=== PATIENT | female | born 1990 | race Caucasian/White ===

== ENCOUNTER 2016-10-15 16:40 | Emergency (ER) | payer OTHER ==
[2016-10-15 17:00] VITALS: BP 100/68
--- NOTE | 2016-10-15 18:13 | UC ---
Throat Pain/Nasal Jesus HPI - HPI Summary HPI Summary: 26 yo female with sore throat x 2 days feverish daughter dxed with strep a week ago - History of Current Complaint Chief Complaint: UCRespiratory Stated Complaint: SORE THROAT, EAR PAIN Time Seen by Provider: 10/15/16 18:06 Hx Obtained From: Patient Hx Last Menstrual Period: 07/01/16, states period started and didnt stop until 10/13/16 Onset/Duration: Gradual Onset, Lasting Days Severity: Moderate Pain Intensity: 4 Pain Scale Used: 0-10 Numeric Cough: None - Allergies/Home Medications Allergies/Adverse Reactions: Allergies Allergy/AdvReac Type Severity Reaction Status Date / Time No Known Allergies Allergy Verified 10/15/16 17:00 Home Medications: Home Medications Etonogestrel [Nexplanon] 68 mg IMPLANT ONCE 10/15/16 [History Confirmed 10/15/16 ] PMH/Surg Hx/FS Hx/Imm Hx Previously Healthy: Yes - Surgical History Surgical History: None - Family History Known Family History: Negative: Cardiac Disease, Hypertension, Diabetes - Social History Alcohol Use: Occasionally Substance Use Type: None Smoking Status (MU): Never Smoked Tobacco Review of Systems Constitutional: Fever Skin: Negative Eyes: Negative ENT: Sore Throat Respiratory: Negative Cardiovascular: Negative Gastrointestinal: Negative Genitourinary: Negative Motor: Negative Neurovascular: Negative Musculoskeletal: Negative Neurological: Negative Psychological: Negative All Other Systems Reviewed And Are Negative: Yes Physical Exam Triage Information Reviewed: Yes Appearance: Well-Appearing, No Pain Distress, Well-Nourished Vital Signs: Initial Vital Signs Temp 98.8 F 10/15/16 16:54 Pulse 85 10/15/16 16:54 Resp 14 10/15/16 16:54 BP 100/68 10/15/16 16:54 Pulse Ox 98 10/15/16 16:54 Vital Signs Reviewed: Yes Eyes: Positive: Conjunctiva Clear ENT: Positive: Hearing grossly normal, Pharyngeal erythema, TMs normal - right unable to vis due to cerumen, Tonsillar swelling. Negative: Trismus, Muffled/ hoarse voice Dental: Positive: Cervical Lymphadenopathy. Negative: Abscess @ Neck: Positive: Supple Respiratory: Positive: Lungs clear, Normal breath sounds, No respiratory distress, No accessory muscle use Cardiovascular: Positive: RRR, No Murmur Throat Pain/Nasal Course/Dx - Course Course Of Treatment: rs (-) - Differential Dx/Diagnosis Provider Diagnoses: pharyngitis. recent household exposer to strep Discharge - Discharge Plan Condition: Stable Disposition: HOME Prescriptions: Amoxicillin (*) [Amoxicillin 875 MG (*)] 875 mg PO BID #20 tab Patient Education Materials: Pharyngitis (ED) Referrals: Pauline Winter MD [Primary Care Provider] - Additional Instructions: recheck in 3-4 days if not better
== END 2016-10-15 18:17 | disposition home or self-care (01) ==
LOC: UCCORT 16:40
DX: J02.9 Acute pharyngitis, unspecified (principal); H92.09 Otalgia, unspecified ear
CPT/HCPCS: 87651; 99212; G0463

== ENCOUNTER 2018-01-01 14:06 | Emergency (ER) | payer OTHER ==
[2018-01-01 15:43] VITALS: BP 121/73
--- NOTE | 2018-01-01 16:14 | UC ---
Lower Extremity/Ankle HPI - HPI Summary HPI Summary: Bilateral great toenail pain after wearing new cowboy boots for a wedding. Hurt her back jumping over a fence and only noticed the toenail pain the last 4 days. - History of Current Complaint Chief Complaint: UCLowerExtremity Stated Complaint: BILATERAL GREAT TOE PAIN Time Seen by Provider: 01/01/18 15:55 Hx Obtained From: Patient Hx Last Menstrual Period: 02/28/17 ?: No Onset/Duration: Sudden Onset, Lasting Days - 4, Still Present Severity Initially: Mild Severity Currently: Moderate Pain Intensity: 3 Aggravating Factor(s): Standing, Ambulation Alleviating Factor(s): Rest, Elevation Able to Bear Weight: Yes - Allergies/Home Medications Allergies/Adverse Reactions: Allergies Allergy/AdvReac Type Severity Reaction Status Date / Time No Known Allergies Allergy Verified 01/01/18 15:43 Home Medications: Home Medications Ibuprofen TAB* [Motrin TAB* 600 MG] 600 mg PO Q8H PRN 01/01/18 [History Confirmed 01/01/18] PMH/Surg Hx/FS Hx/Imm Hx Previously Healthy: Yes - Surgical History Surgical History: Yes Surgery Procedure, Year, and Place: tubal ligation - Family History Known Family History: Negative: Cardiac Disease, Hypertension, Diabetes - Social History Occupation: Employed Full-time Lives: With Family Alcohol Use: Rare Substance Use Type: None Smoking Status (MU): Never Smoked Tobacco Review of Systems Skin: Bruising Musculoskeletal: Arthralgia - low back pain Is Patient Immunocompromised?: No All Other Systems Reviewed And Are Negative: Yes Physical Exam Triage Information Reviewed: Yes Appearance: Well-Appearing, Well-Nourished, Pain Distress - with palpation of toenails. Vital Signs: Initial Vital Signs Temp 98.0 F 01/01/18 15:38 Pulse 97 01/01/18 15:38 Resp 16 01/01/18 15:38 BP 121/73 01/01/18 15:38 Pulse Ox 100 01/01/18 15:38 Vital Signs Reviewed: Yes Eyes: Positive: Conjunctiva Clear Neck exam: Normal Respiratory Exam: Normal Cardiovascular Exam: Normal Musculoskeletal Exam: Normal Neurological Exam: Normal Psychological Exam: Normal Skin: Positive: Other - swellilng under both great toe nails Procedures - Procedure Summary Procedure Summary: Bilateral great toe nail sub ungal hematoma drainage achieved with accu-temp electric cautery pen. Lower Extremity Course/Dx - Differential Dx/Diagnosis Differential Diagnosis/HQI/PQRI: Contusion, Infection, Subungual Hematoma Provider Diagnoses: Bilateral subungal hematoma Discharge - Sign-Out/Discharge Documenting (check all that apply): Patient Departure All imaging exams completed and their final reports reviewed: No Studies - Discharge Plan Condition: Stable Disposition: HOME Patient Education Materials: Subungual Hematoma (ED) Referrals: Adrianne Martin NP [Primary Care Provider] - - Billing Disposition and Condition Condition: STABLE Disposition: Home
== END 2018-01-01 16:34 | disposition home or self-care (01) ==
LOC: UCCORT 14:06
DX: S90.211A Contusion of right great toe with damage to nail, initial encounter (principal); S90.212A Contusion of left great toe with damage to nail, initial encounter; X58.XXXA Exposure to other specified factors, initial encounter; Y93.89 Activity, other specified; Y92.9 Unspecified place or not applicable
CPT/HCPCS: 10140; 99211; G0463

== ENCOUNTER 2018-03-06 13:02 | Emergency (ER) | payer OTHER ==
[2018-03-06 14:00] VITALS: BP 126/68
--- NOTE | 2018-03-06 14:32 | UC ---
Throat Pain/Nasal Jesus HPI - HPI Summary HPI Summary: Pt presents with c/o ST and fatigue X 4 weeks. - History of Current Complaint Chief Complaint: UCGeneralIllness Stated Complaint: ST/[place]EN [place]ANDS Time Seen by Provider: 03/06/18 13:55 Hx Obtained From: Patient Hx Last Menstrual Period: unknown, ablation ?: No Onset/Duration: Gradual Onset, Lasting Weeks, Still Present Severity: Mild Pain Intensity: 4 Cough: None Associated Signs & Symptoms: Positive: Dysphagia - Epiglottits Risk Factors Epiglottis Risk Factors: Negative - Allergies/Home Medications Allergies/Adverse Reactions: Allergies Allergy/AdvReac Type Severity Reaction Status Date / Time No Known Allergies Allergy Verified 03/06/18 13:57 Home Medications: Home Medications NK [No Home Medications Reported] 03/06/18 [History Confirmed 03/06/18] PMH/Surg Hx/FS Hx/Imm Hx Previously Healthy: Yes - Surgical History Surgical History: Yes Surgery Procedure, Year, and Place: tubal ligation. uterine ablation - Family History Known Family History: Negative: Cardiac Disease, Hypertension, Diabetes - Social History Occupation: Employed Full-time Lives: With Family Alcohol Use: Rare Substance Use Type: None Smoking Status (MU): Never Smoked Tobacco Have You Smoked in the Last Year: No Review of Systems All Other Systems Reviewed And Are Negative: Yes Constitutional: Positive: Fever - subjective, Fatigue Skin: Positive: Negative Eyes: Positive: Negative ENT: Positive: Sore Throat Respiratory: Positive: Negative Cardiovascular: Positive: Negative Gastrointestinal: Positive: Negative Genitourinary: Positive: Negative Motor: Positive: Negative Neurovascular: Positive: Negative Musculoskeletal: Positive: Negative Neurological: Positive: Negative Psychological: Positive: Negative Is Patient Immunocompromised?: No Physical Exam Triage Information Reviewed: Yes Appearance: Well-Appearing Vital Signs: Initial Vital Signs Temp 98 F 03/06/18 13:55 Pulse 65 03/06/18 13:55 Resp 14 03/06/18 13:55 BP 126/68 03/06/18 13:55 Pulse Ox 100 03/06/18 13:55 Vital Signs Reviewed: Yes Eye Exam: Normal ENT Exam: Normal ENT: Positive: Normal ENT inspection Dental Exam: Normal Neck exam: Normal Respiratory Exam: Normal Cardiovascular Exam: Normal Abdomen Description: Positive: Other: - epigastirc discomfort with PE. Musculoskeletal Exam: Normal Neurological Exam: Normal Psychological Exam: Normal Skin Exam: Normal Throat Pain/Nasal Course/Dx - Differential Dx/Diagnosis Differential Diagnosis/HQI/PQRI: Mononucleosis, Pharyngitis, Tonsillitis Provider Diagnoses: sore throat. viral syndrome Discharge - Sign-Out/Discharge Documenting (check all that apply): Patient Departure All imaging exams completed and their final reports reviewed: No Studies - Discharge Plan Condition: Stable Disposition: HOME Patient Education Materials: Pharyngitis (ED), Fatigue (ED) Referrals: Adrianne Martni NP [Primary Care Provider] - As Soon As Possible - Billing Disposition and Condition Condition: STABLE Disposition: Home - Attestation Statements Provider Attestation: Per institutional requirements, I have reviewed the chart, however, I was not consulted specifically or made aware of this patient by the midlevel provider. I did not personally evaluate, interact with , or disposition this patient.
[2018-03-07 11:12] LABS: ABS Basophils 0 10^3/ul (0-0.2); ABS Eosinophils 0.2 10^3/ul (0-0.6); ABS Lymphocytes 1.8 10^3/ul (1.0-4.8); ABS Monocytes 0.5 10^3/ul (0-0.8); ABS Neutrophils 6.1 10^3/ul (1.5-7.7); ABS Nucleated RBC 0 10^3/ul; Eosinophil % 2.3 % (0-6); Hematocrit 43 % (35-47); Hemoglobin 14.5 g/dl (12.0-16.0); Mean Corpuscular HGB Conc 34 g/dl (31-36); Mean Corpuscular Hemoglobin 31 pg (27-31); Mean Corpuscular Volume 92 fL (80-97); Mean Platelet Volume 9.2 fL (7.4-10.4); Nucleated Red Blood Cells % 0.3; Platelet Count 280 10^3/ul (150-450); Red Blood Count 4.71 10^6/ul (4.00-5.40); Red Cell Distribution Width 13 % (10.5-15); White Blood Count 8.7 10^3/ul (3.5-10.8)
== END 2018-03-06 14:45 | disposition home or self-care (01) ==
LOC: UCCORT 13:02
DX: J02.9 Acute pharyngitis, unspecified (principal); B34.9 Viral infection, unspecified
CPT/HCPCS: 36415; 85025; 86308; 99211; G0463

== ENCOUNTER 2018-04-20 12:16 | Emergency (ER) | payer OTHER ==
[2018-04-20 14:15] VITALS: BP 116/69
--- NOTE | 2018-04-20 14:43 | UC ---
Throat Pain/Nasal Jesus HPI - HPI Summary HPI Summary: 27-year-old female presents with 2 week history of nasal congestion, nasal drainage, sinus pressure, and mild sore throat. States over past 2-3 days the nasal drainage has become more thick and turned a green color. This morning she woke up with her left eye crusted shut and erythema. Denies fever, chills, ear pain, cough, shortness of breath, chest pain, abdominal pain, nausea, vomiting, or diarrhea. - History of Current Complaint Chief Complaint: UCRespiratory Stated Complaint: SINUS COMPLAINT Time Seen by Provider: 04/20/18 14:17 Hx Obtained From: Patient Hx Last Menstrual Period: unknown, ablation Pain Intensity: 0 - Allergies/Home Medications Allergies/Adverse Reactions: Allergies Allergy/AdvReac Type Severity Reaction Status Date / Time No Known Allergies Allergy Verified 04/20/18 14:10 Home Medications: Home Medications Dm/Acetaminophen/Doxylamine [Nighttime Cold-Flu Liquid] 1 dose PO ONCE 04/20/18 [History Confirmed 04/20/18] PMH/Surg Hx/FS Hx/Imm Hx Previously Healthy: Yes - Denies significant PMH. - Surgical History Surgical History: Yes Surgery Procedure, Year, and Place: tubal ligation. uterine ablation - Family History Known Family History: Positive: Non-Contributory - Social History Occupation: Employed Full-time Lives: Alone Alcohol Use: Occasionally Substance Use Type: None Smoking Status (MU): Never Smoked Tobacco Have You Smoked in the Last Year: No Review of Systems All Other Systems Reviewed And Are Negative: Yes Constitutional: Negative: Fever, Chills Eyes: Positive: Drainage, Eye Redness ENT: Positive: Sore Throat, Nasal Discharge, Sinus Congestion, Sinus Pain/ Tenderness. Negative: Ear Ache Respiratory: Negative: Shortness Of Breath, Cough Cardiovascular: Negative: Palpitations, Chest Pain Gastrointestinal: Negative: Abdominal Pain, Vomiting, Diarrhea, Nausea Is Patient Immunocompromised?: No Physical Exam - Summary Physical Exam Summary: GENERAL APPEARANCE: Well developed, well nourished, alert and cooperative, and appears to be in no acute distress. EYES: Left eye with conjunctival erythema. No drainage noted. Vision is grossly intact. EARS: External auditory canals and tympanic membranes clear, hearing grossly intact. NOSE: Mild-moderate nasal congestion with mucosal erythema and edema. THROAT: Mild pharyngeal erythema with cobblestoning. No tonsilar inflammation, swelling, exudate, or lesions. Oral cavity normal. Teeth and gingiva in good general condition. NECK: Neck supple, non-tender without lymphadenopathy. CARDIAC: Normal S1 and S2. No S3, S4 or murmurs. Rhythm is regular. There is no peripheral edema, cyanosis or pallor. Extremities are warm and well perfused. Capillary refill is less than 2 seconds. LUNGS: Clear to auscultation and percussion without rales, rhonchi, wheezing or diminished breath sounds. ABDOMEN: Positive bowel sounds. Soft, nondistended, nontender. No guarding or rebound. No masses or hepatosplenomegally. SKIN: Skin normal color, texture and turgor with no lesions or eruptions. Triage Information Reviewed: Yes Vital Signs: Initial Vital Signs Temp 97.9 F 04/20/18 14:11 Pulse 78 04/20/18 14:11 Resp 16 04/20/18 14:11 BP 116/69 04/20/18 14:11 Pulse Ox 99 04/20/18 14:11 Vital Signs Reviewed: Yes Throat Pain/Nasal Course/Dx - Course Course Of Treatment: 27-year-old female presents with 2 week history of nasal congestion, nasal drainage, sinus pressure, and mild sore throat. States over past 2-3 days the nasal drainage has become more thick and turned a green color. This morning she woke up with her left eye crusted shut and erythema. Denies fever, chills, ear pain, cough, shortness of breath, chest pain, abdominal pain, nausea, vomiting, or diarrhea. Afebrile. Vital signs stable. Exam revealed maxillary sinus tenderness, nasal congestion, mucosal erythema and edema, left conjunctival erythema without discharge, mild pharyngeal erythema with cobblestoning, no tonsillar swelling or exudate. Considering duration of her symptoms and the worsening of symptoms will treat for an acute bacterial sinusitis with Augmentin twice a day 10 days as well as symptomatic treatment. She is to follow-up with her primary care provider in 5 days if symptoms persist. Warning symptoms were reviewed. Verbalizes understanding and agrees with plan of care. - Differential Dx/Diagnosis Differential Diagnosis/HQI/PQRI: Influenza, Otitis Media, Pharyngitis, Sinusitis , URI Provider Diagnosis: Acute maxillary sinusitis, Conjunctivitis Discharge - Sign-Out/Discharge Documenting (check all that apply): Patient Departure All imaging exams completed and their final reports reviewed: No Studies - Discharge Plan Condition: Stable Disposition: HOME Prescriptions: Amoxicillin/Clavulanate TAB* [Augmentin TAB 875*] 875 mg PO BID #20 tab Fluticasone NASAL SPRAY 50MCG* [Flonase NASAL SPRAY 50MCG*] 2 spray BOTH NARES DAILY #1 btl Patient Education Materials: Sinusitis (ED) Referrals: Adrianne Martin NP [Primary Care Provider] - 5 Days (If no improvement.) Additional Instructions: Your history and exam are consistent with a sinus infection and conjunctivitis. Considering the duration of your symptoms we will treat you with an antibiotic for the infection. Start Augmentin 1 tab twice a day for 10 days. This will also treat the eye infection. Drink plenty of fluids to avoid dehydration especially if you are running any fever. Use a saline rinse kit such as Neti Pot or NeilMed at least twice a day to help thin secretions and promote drainage of the sinuses. Use fluticasone (Flonase) nasal spray 2 sprays each nostril once daily. Use an over the counter decongestant such as Sudafed according to directions to help with congestion. Take over the counter acetaminophen (Tylenol) or ibuprofen (Advil, Motrin) according to directions as needed for pain or fever. Follow up with your primary care provider in 7 days if symptoms persist. Seek immediate medical attention in the emergency room if you have fever greater than 100.5 F despite taking acetaminophen or ibuprofen, have chest pain , difficulty breathing, are unable to swallow, or have any worsening of symptoms. - Billing Disposition and Condition Condition: STABLE Disposition: Home - Attestation Statements Provider Attestation: Per institutional requirements, I have reviewed the chart, however, I was not consulted specifically or made aware of this patient by the midlevel provider. I did not personally evaluate, interact with , or disposition this patient.
== END 2018-04-20 14:56 | disposition home or self-care (01) ==
LOC: UCCORT 12:16
DX: J01.00 Acute maxillary sinusitis, unspecified (principal); H10.9 Unspecified conjunctivitis
CPT/HCPCS: 99212; G0463

== ENCOUNTER 2018-08-13 13:57 | Emergency (ER) | payer OTHER ==
--- OUTSIDE RECORDS SUMMARY | 2018-08-13 14:40 | XMS REPORT | Continuity of Care Document ---
:1990 External Reference #:[id number] Author Name Marycruz Kemp MD Address [address] [place] [address] Care Team Providers Name Role Phone Jocelyn Martin, CAMILA Care Team Information Change Room Attendant Unavailable Jocelyn Martin, CAMILA Primary Care Physician Unavailable Payers Date Identification Numbers Payment Provider Subscriber Effective: 2010 Policy Number: [id number] [employer] Diamond PayID: [id number] [address] [place] [address] Advance Directives Description No Information Available Problems Date Description Provider Status Onset: 03/16/2011 Chondromalacia of patella Nakul Puckett MD, FACS Active Family History Date Family Member(s) Observation Comments Father Bipolar Disorder Father Manic Depression Father Stroke Father Hypertension Father Drug Addiction including ETOH and MJ Mother No Current Problems First Sister Thyroid Disease Paternal Grandfather due to Stomach Cancer () Paternal Grandmother Bipolar Disorder Paternal Grandmother due to Cancer () Maternal Grandfather Chronic Obstructive Pulmonary + smoker Disease (COPD) Maternal Grandfather Glaucoma Maternal Grandfather Obesity Maternal Grandfather Benign Essential Hypertension Maternal Grandmother Hypertension Social History Type Date Description Comments Sex Unknown Lives With Daughters Diet Patient follows no dietary restrictions 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5mg 18tab take 1/2 to F41.1 Clune, 19 s 1 tablet by Jenniferl mouth prn eigh, COMPUTER AIDED DESIGN OPERATOR for anxiety and panic attacks mdd#2 Reference #: [id number] Escitalopram 05/23/19 Active Tablets 20mg 45tab 1 and 1/2 Clune, Oxalate 19 s tabs PO Q hs Jenniferl for anxiety eigh, COMPUTER AIDED DESIGN OPERATOR Buspirone HCL 05/31/19 Hx Tablets 5mg 120ta take 1 -2 F41.1 Clune, 19 - bs tablet by Aida 06/21/19 mouth three eigh, COMPUTER AIDED DESIGN OPERATOR 19 times a day No Active 05/17/19 Hx Unknown Medications - 05/23/19 19 No Active 05/03/19 Hx Unknown Medications - 05/03/19 19 Chloraseptic 05/03/19 Hx Lozenges 45uni 1 lozenge by Jose Enrique Dumont Total Sore 19 - ts mouth every MD Mc Throat + Cough 05/17/19 2 hours as 19 needed Tessalon 05/03/19 Hx Capsules 100mg 60cap 1 tab by Anna Marinelli 19 - s mouth three MD Mc 05/17/19 times a day 19 as needed Metronidazole 10/01/19 Hx Tablets 500mg 14tab one by mouth N92.6 Clune, 17 - s twice a day Jenniferl 10/08/19 x 7 days eigh, COMPUTER AIDED DESIGN OPERATOR 17 Sulfacetamide 04/15/20 Hx Solution 10% 15ml 1-2 drops H10.89 Clune, Sodium 16 - each eye 3-5 Jenniferl 10/01/19 times a day britni, COMPUTER AIDED DESIGN OPERATOR 17 for 5 days Prednisone 01/21/20 Hx Tablets 20mg 2tabs Take 2 S70.361A Bonifacio 16 - tablet by Kesha 01/22/20 mouth one YISEL Owens 16 time for inflammation No Active 08/31/19 Hx Unknown Medications 15 - 08/31/19 15 Naproxen 08/31/19 Hx Tablets 500mg 60tab take one 727.05 Clune, 15 - s tablet by Jenniferl 01/21/20 mouth twice eigh, COMPUTER AIDED DESIGN OPERATOR 16 a day . take with food Thumb 08/31/19 Hx Misc use as 727.05 Clune, Splint/Right 15 - needed for Aida Small 01/21/20 RT thumb eigh, COMPUTER AIDED DESIGN OPERATOR 16 tenosynoviti s 8 Hour Pain 05/21/19 Hx Tablets 650mg 1 by mouth Moy Relief 15 - ER every day as Pauline 08/31/19 needed , 15 Azithromycin 05/21/19 Hx Tablets 250mg 10tab 2 tabs by Moy, 15 - s mouth every Pauline 08/31/19 day , 15 No Active 01/27/20 Hx Law[place], Medications 11 - Nakul Cook, 05/21/19 , FACS 15 Nexplanon Hx Implant 68mg Unknown 00 - Unknown Immunizations CPT Code Status Date Vaccine Lot # [id number] Given 05/17/2018 Td Preservative Free For Use In Individuals 7 Yrs [id number] Or Older 96903 Given 08/30/2014 Varicella (Chicken Pox) Vaccine [id number] 51356 Given 04/10/2013 flu vaccination 93637 Given 04/15/2012 flu vaccination 43507 Given 06/17/2011 flu vaccination 17378 Given 01/02/2009 Meningococcal Conjugate Vaccine Serogroups For Intramuscular Use 34817 Given 01/02/2009 Tdap injection 96536 Given 12/26/2008 flu vaccination 35588 Given 12/26/2008 Gardasil 17458 Given 03/19/2008 Gardasil 95297 Given 01/18/2008 Tdap injection 05055 Given 01/18/2008 Gardasil 65448 Given 11/21/2002 Hepatitis B Vaccine Pediatric/Adolescent 53835 Given 11/21/2002 Varicella (Chicken Pox) Vaccine 76467 Given 08/12/2001 Hepatitis B Vaccine Pediatric/Adolescent 98357 Given 12/12/1996 MMR Vaccine, Live, For Subcutaneous Use 20849 Given 12/12/1993 Poliovirus Vaccine Subcutaneous Or Intramuscular 06947 Given 12/12/1993 DTaP Vaccine Younger Than 7 02526 Given 04/15/1993 Hepatitis B Vaccine Pediatric/Adolescent 09862 Given 04/15/1993 Poliovirus Vaccine Subcutaneous Or Intramuscular 11186 Given 04/15/1993 DTaP Vaccine Younger Than 7 29088 Given 09/17/1992 MMR Vaccine, Live, For Subcutaneous Use 79871 Given 1991 DTaP Vaccine Younger Than 7 10360 Given 1991 Hib PRP-T Conjugate 4 Dose Schedule 75278 Given 1991 Poliovirus Vaccine Subcutaneous Or Intramuscular 24581 Given 1991 DTaP Vaccine Younger Than 7 93341 Given 1991 Hib PRP-T Conjugate 4 Dose Schedule 69857 Given 1991 Poliovirus Vaccine Subcutaneous Or Intramuscular 44600 Given 1991 DTaP Vaccine Younger Than 7 10709 Given 1991 Hib PRP-T Conjugate 4 Dose Schedule Vital Signs Date Vital Result Comment 07/21/2018 8:49am BP Systolic 104 mmHg BP Diastolic 58 mmHg Heart Rate 82 /min Respiratory Rate 15 /min Height 58 inches 4'10" Weight 132.00 lb BMI (Body Mass Index) 27.6 kg/m2 BSA (Body Surface Area) 1.53 m2 [place] body weight in kilograms 45 kg O2 % BldC Oximetry 98 % 07/11/2018 4:37pm BP Systolic Sitting Left Arm 118 mmHg BP Diastolic Sitting Left Arm 68 mmHg Body Temperature 98.3 F Heart Rate 97 /min Weight 131.00 lb O2 % BldC Oximetry 97 % 06/21/2018 8:27am BP Systolic 112 mmHg BP Diastolic 74 mmHg Heart Rate 75 /min Respiratory Rate 18 /min Height 59 inches 4'11" Weight 126.50 lb BMI (Body Mass Index) 25.5 kg/m2 BSA (Body Surface Area) 1.52 m2 [place] body weight in kilograms 45 kg O2 % BldC Oximetry 99 % Ra 05/31/2018 8:36am BP Systolic 120 mmHg BP Diastolic 70 mmHg Body Temperature 98.7 F Heart Rate 84 /min Respiratory Rate 16 /min Height 59 inches 4'11" Weight 126.00 lb BMI (Body Mass Index) 25.4 kg/m2 BSA (Body Surface Area) 1.52 m2 [place] body weight in kilograms 45 kg O2 % BldC Oximetry 98 % 05/17/2018 9:43am BP Systolic 110 mmHg BP Diastolic 72 mmHg Body Temperature 97.9 F Heart Rate 71 /min Respiratory Rate 20 /min Height 59 inches 4'11" Weight 126.12 lb BMI (Body Mass Index) 25.5 kg/m2 BSA (Body Surface Area) 1.52 m2 [place] body weight in kilograms 45 kg O2 % BldC Oximetry 99 % Ra Pain Level 0 05/03/2018 10:33am BP Systolic Sitting Left Arm 110 mmHg BP Diastolic Sitting Left Arm 70 mmHg Body Temperature 98.6 F Heart Rate 82 /min Respiratory Rate 16 /min Height 59 inches 4'11" Weight 130.00 lb BMI (Body Mass Index) 26.3 kg/m2 BSA (Body Surface Area) 1.54 m2 [place] body weight in kilograms 45 kg O2 % BldC Oximetry 99 % 09/30/2016 8:51am BP Systolic Sitting Left Arm 110 mmHg BP Diastolic Sitting Left Arm 68 mmHg Heart Rate 72 /min Respiratory Rate 18 /min Height 59 inches 4'11" Weight 125.38 lb BMI (Body Mass Index) 25.3 kg/m2 BSA (Body Surface Area) 1.51 m2 [place] body weight in kilograms 45 kg 04/15/2016 11:44am BP Systolic Sitting Left Arm 118 mmHg BP Diastolic Sitting Left Arm 72 mmHg Body Temperature 97.7 F Height 59 inches 4'11" Weight 118.00 lb BMI (Body Mass Index) 23.8 kg/m2 BSA (Body Surface Area) 1.47 m2 [place] body weight in kilograms 45 kg 01/21/2016 2:26pm BP Systolic Sitting Left Arm 118 mmHg BP Diastolic Sitting Left Arm 60 mmHg Body Temperature 99.3 F Heart Rate 64 /min Respiratory Rate 16 /min Height 59 inches 4'11" Weight 117.50 lb BMI (Body Mass Index) 23.7 kg/m2 BSA (Body Surface Area) 1.47 m2 [place] body weight in kilograms 45 kg 08/30/2014 9:16am BP Systolic Sitting Left Arm 112 mmHg BP Diastolic Sitting Left Arm 70 mmHg Height 60.5 inches 5'0.50" Weight 121.00 lb BMI (Body Mass Index) 23.2 kg/m2 BSA (Body Surface Area) 1.52 m2 05/21/2014 1:42pm BP Systolic 104 mmHg BP Diastolic 60 mmHg Body Temperature 99.2 F Height 60.5 inches 5'0.50" Weight 128.00 lb 06/05/2013 2:13pm BP Systolic 102 mmHg BP Diastolic 62 mmHg Body Temperature 98.3 F Height 60.5 inches 5'0.50" Weight 151.00 lb 12/20/2012 5:05pm BP Systolic 126 mmHg BP Diastolic 76 mmHg Height 60.5 inches 5'0.50" Weight 129.00 lb 12/01/2012 4:52pm BP Systolic 108 mmHg BP Diastolic 76 mmHg Heart Rate 72 /min Height 60.5 inches 5'0.50" Weight 129.00 lb 03/25/2012 9:16am BP Systolic 118 mmHg BP Diastolic 76 mmHg Height 61 inches 5'1" Weight 130.00 lb 03/04/2012 9:30am BP Systolic 102 mmHg BP Diastolic 68 mmHg Height 61 inches 5'1" Weight 128.00 lb 02/01/2012 1:16pm BP Systolic 110 mmHg BP Diastolic 66 mmHg Body Temperature 98.6 F Height 61 inches 5'1" Weight 129.00 lb 12/24/2011 2:18pm BP Systolic 118 mmHg BP Diastolic 70 mmHg Body Temperature 98.5 F Height 61 inches 5'1" Weight 128.00 lb 07/09/2011 10:49am BP Systolic 108 mmHg BP Diastolic 70 mmHg Body Temperature 98.5 F Height 61 inches 5'1" Weight 122.00 lb 05/14/2011 1:35pm BP Systolic 112 mmHg BP Diastolic 76 mmHg Height 59.5 inches 4'11.50" Weight 127.00 lb 05/14/2011 1:38pm Body Temperature 98.0 F 04/13/2011 3:44pm BP Systolic 108 mmHg BP Diastolic 80 mmHg Body Temperature 97.6 F Heart Rate 76 /min Height 59.5 inches 4'11.50" Weight 130.00 lb 03/02/2011 1:37pm BP Systolic 104 mmHg BP Diastolic 62 mmHg Body Temperature 97.8 F Height 59.5 inches 4'11.50" Weight 126.00 lb 02/04/2011 10:21am BP Systolic 98 mmHg BP Diastolic 60 mmHg Body Temperature 98.9 F Heart Rate 72 /min Respiratory Rate 18 /min Height 59.5 inches 4'11.50" Weight 181.00 lb 01/26/2011 10:53am Height 60 inches 5'0" Weight 128.00 lb BMI (Body Mass Index) 25.0 kg/m2 12/16/2010 3:11pm BP Systolic 108 mmHg BP Diastolic 80 mmHg Body Temperature 97.9 F Height 59.5 inches 4'11.50" Weight 132.00 lb Results Test Date Facility Test Result H/L Range Note Urine Dipstick 07/11/2018 [facility] Ua Color Yellow Yellow Ua Clarity clear Clear Ua Leuko negative Negative Ua Nitrite negative Negative Ua Urobilinogen 0.2 0.2 - 1.0 E.U./dL Ua Protein negative Negative Ua PH 6.5 6.5-7.5 Ua Blood negative Negative Ua Specific [place] 1.015 1.010-1.030 Ua Ketones negative Negative Ua Bilirubin negative Negative Ua Glucose negative Negative CBC W/Automated Diff 07/11/2018 [facility] White Blood 8.3 K/uL N 3.1-10.[address] [place] [address] [phone] Red Blood Count 4.40 M/uL N 3.90-5.40 Hemoglobin 13.4 gm/dL N 11.6-15.8 Hematocrit 40.4 % N 36.0-46.1 Mean Cell Volume 91.8 fl N 80.9-99.0 Mean Corpuscular HGB 30.5 pg N 25.9-32.7 Mean Corpuscular HGB Conc 33.2 g/dL N 30.8-34.3 Platelet Count 261 K/uL N 155-360 Red Cell Distri Width SD 41.5 fl N 36-47 Red Cell Distri Width %CV 12.8 % N 11.7-14.4 Mean Platelet Volume 9.8 fL N 8.9-12.4 Neut% 53.4 % N 40.4-72.8 Lymph % 36.2 % N 20.0-42.0 [place] % 7.2 % N 4.3-13.2 Eo% 2.8 % N 0.0-6.6 Bas% 0.4 % N 0.0-1.1 Neut# 4.41 K/uL N 1.8-7.0 Lymph # 2.99 K/uL N 1.0-4.0 [place] # 0.59 K/uL N 0.3-0.9 Eos # 0.23 K/uL N 0.0-0.5 Baso # 0.03 K/uL N 0.0-0.1 Comprehensive Metabolic 07/11/2018 [facility] Glucose 81 mg/dL N 74-[address] [place] [address] [phone] BUN 13 mg/dL N 7-18 Creatinine 0.9 mg/dL N 0.6-1.3 Glom Filtration Rate, Estimate >60 mL/min >60 If >60 mL/min >60 2 BUN/Creat 14.4 ratio Sodium 141 mmol/L N 136-145 Potassium 3.8 mmol/L N 3.5-5.1 Chloride 106 mmol/L N 98-107 Carbon Dioxide 28 mmol/L N 21-32 Anion Gap 7 mEq/L Low 8-16 Calcium 8.8 mg/dL N 8.5-10.1 Total Protein 7.0 g/dL N 6.4-8.2 Albumin 4.1 g/dL N 3.4-5.0 Globulin 2.9 g/dL N 1.9-4.3 Alb/Glob 1.4 ratio Bilirubin,Total 0.6 mg/dL N 0.2-1.0 Sgot/Ast 20 U/L N 15-37 SGPT/Alt 27 U/L N 12-78 Alkaline Phosphatase 49 U/L N 45-117 Ua RFX Micro & Culture 07/11/2018 [facility] Urine Color YELLOW Yellow II [address] [place] [address] [phone] Urine Clarity CLEAR Clear Urine Glucose - Dipstick NEGATIVE mg/dL Negative Urine Bilirubin - Dipstick NEGATIVE Negative Urine Ketone NEGATIVE mg/dL Negative Urine Specific [place] 1.020 N 1.010-1.030 Urine Blood NEGATIVE Negative Urine PH 6.0 Low 6.5-7.5 Urine Protein - Dipstick NEGATIVE mg/dL Negative Urine Urobilinogen - Dipstick 0.2 E.U./dL N 0.2-1.0 Urine Nitrite - Dipstick NEGATIVE Negative Urine Leuk Esterase NEGATIVE Negative Source: URINE, CLEAN CAT <SEE NOTE> 3 Laboratory test finding 07/11/2018 [facility] Lipase 142 U/L N 56-289 [address] [place] [address] [phone] HCG,Serum (Qualitative) NEGATIVE (Negative) Urine Dipstick 05/17/2018 [facility] Ua Color - Yellow Ua Clarity cloudy Clear Ua Leuko - Negative Ua Nitrite - Negative Ua Urobilinogen 0.2 0.2 - 1.0 E.U./dL Ua Protein - Negative Ua PH 7.0 6.5-7.5 Ua Blood - Negative Ua Specific [place] 1.015 1.010-1.030 Ua Ketones - Negative Ua Bilirubin - Negative Ua Glucose - Negative Laboratory test 05/17/[address] [facility] [address] [address] Thyroid Stim 1.94 uIU/mL N 0.30-4.20 4 finding [address] [place] [address] [phone] CBC W/Automated 05/17/[address] White Blood 5.6 K/uL N 3.1- 10.7 Diff [address] [place] [address] [phone] Red Blood Count 4.66 M/uL N 3.90-5.40 Hemoglobin 14.0 gm/dL N 11.6-15.8 Hematocrit 43.5 % N 36.0-46.1 Mean Cell Volume 93.3 fl N 80.9-99.0 Mean Corpuscular HGB 30.0 pg N 25.9-32.7 Mean Corpuscular HGB Conc 32.2 g/dL N 30.8-34.3 Platelet Count 268 K/uL N 155-360 Red Cell Distri Width SD 42.4 fl N 36-47 Red Cell Distri Width %CV 12.7 % N 11.7-14.4 Mean Platelet Volume 10.8 fL N 8.9-12.4 Neut% 57.6 % N 40.4-72.8 Lymph % 31.9 % N 20.0-42.0 [place] % 6.6 % N 4.3-13.2 Eo% 3.4 % N 0.0-6.6 Bas% 0.5 % N 0.0-1.1 Neut# 3.24 K/uL N 1.8-7.0 Lymph # 1.79 K/uL N 1.0-4.0 [place] # 0.37 K/uL N 0.3-0.9 Eos # 0.19 K/uL N 0.0-0.5 Baso # 0.03 K/uL N 0.0-0.1 Comprehensive Metabolic 05/17/[address] Glucose 92 mg/dL N 74 -106 Panel [address] [place] [address] [phone] BUN 13 mg/dL N 7-18 Creatinine 1.0 mg/dL 0.6-1.3 Glom Filtration Rate, Estimate >60 mL/min >60 If >60 mL/min >60 5 BUN/Creat 13.0 ratio Sodium 141 mmol/L N 136-145 Potassium 4.3 mmol/L N 3.5-5.1 Chloride 108 mmol/L High 98-107 Carbon Dioxide 29 mmol/L N 21-32 Anion Gap 4 mEq/L Low 8-16 Calcium 8.7 mg/dL N 8.5-10.1 Total Protein 7.4 g/dL N 6.4-8.2 Albumin 4.0 g/dL N 3.4-5.0 Globulin 3.4 g/dL N 1.9-4.3 Alb/Glob 1.2 ratio Bilirubin,Total 0.8 mg/dL N 0.2-1.0 Sgot/Ast 15 U/L N 15-37 SGPT/Alt 23 U/L N 12-78 Alkaline Phosphatase 53 U/L N 45-117 CBC Auto Diff 03/06/2018 [facility] White Blood 8.7 10^3/uL N 3.5-10.8 6 [phone] Count Red Blood Count 4.71 10^6/uL N 4.00-5.40 Hemoglobin 14.5 g/dL N 12.0-16.0 Hematocrit 43 % N 35-47 Mean Corpuscular Volume 92 fL N 80-97 Mean Corpuscular Hemoglobin 31 pg N 27-31 Mean Corpuscular HGB Conc 34 g/dL N 31-36 Red Cell Distribution Width 13 % N 10.5-15 Platelet Count 280 10^3/uL N 150-450 Mean Platelet Volume 9.2 fL N 7.4-10.4 Abs Neutrophils 6.1 10^3/uL N 1.5-7.7 Abs Lymphocytes 1.8 10^3/uL N 1.0-4.8 Abs Monocytes 0.5 10^3/uL N 0-0.8 Abs Eosinophils 0.2 10^3/uL N 0-0.6 Abs Basophils 0 10^3/uL N 0-0.2 Abs Nucleated RBC 0 10^3/uL Granulocyte % 70.2 % N 38-83 Lymphocyte % 21.0 % Low 25-47 Monocyte % 6.2 % N 0-7 Eosinophil % 2.3 % N 0-6 Basophil % 0.3 % N 0-2 Nucleated Red Blood Cells % 0.3 Laboratory test 03/06/2018 [facility] Monospot Negative Negative 7 finding [phone] Urine HCG 12/23/2017 [facility] Urine HCG NEGATIVE Negative 8, 9 (Qualitative) [address] (Qualitative) [place], [place] [id number] [phone] Source: URINE, CLEAN CAT <SEE NOTE> 10 Ua RFX Micro & Culture 12/23/2017 [facility] Urine Color YELLOW Yellow II [address] [place], [place] [id number] [phone] Urine Clarity CLEAR Clear Urine Glucose - Dipstick NEGATIVE mg/dL Negative Urine Bilirubin - Dipstick NEGATIVE Negative Urine Ketone NEGATIVE mg/dL Negative Urine Specific [place] 1.015 N 1.010-1.030 Urine Blood NEGATIVE Negative Urine PH 7.5 N 6.5-7.5 Urine Protein - Dipstick NEGATIVE mg/dL Negative Urine Urobilinogen - Dipstick 0.2 E.U./dL N 0.2-1.0 Urine Nitrite - Dipstick NEGATIVE Negative Urine Leuk Esterase NEGATIVE Negative Source: URINE, CLEAN CAT <SEE NOTE> 11 Hemoglobin/Hematocrit 05/11/2015 [facility] Hemoglobin 11.3 Low 11.6-15.[address] gm/dL [place], [place] [id number] [phone] Hematocrit 34.3 % Low 36.0-46.1 Laboratory test 05/10/2015 [facility] Screen NEGATIVE [address] [place] [address] [phone] Laboratory test 05/10/2015 [facility] Treponema Nonreactive [address] [place] [address] [place] [phone] Type And Screen 05/10/2015 [facility] Patient Blood A NEG [address] [place] [address] [phone] Antibody Screen POSITIVE High Negative Laboratory test 05/10/2015 [facility] Antibody RHOGAM D [address] Identification [place], [place] [address] [phone] CBC 05/09/2015 [facility] White Blood Count 6.1 K/uL 3.1-[address] [place] [address] [phone] Red Blood Count 4.04 M/uL 3.90-5.40 Hemoglobin 11.7 gm/dL 11.6-15.8 Hematocrit 34.6 % Low 36.0-46.1 Mean Cell Volume 85.6 fl 80.9-99.0 Mean Corpuscular HGB 29.0 pg 25.9-32.7 Mean Corpuscular HGB Conc 33.8 g/dL 30.8-34.3 Platelet Count 201 K/uL 155-360 Red Cell Distri Width %CV 13.9 % 11.7-14.4 Mean Platelet Volume 10.5 fL 8.9-12.4 CBC 05/08/2015 [facility] White Blood Count 10.5 K/uL 3.1-10.[address] [place] [address] [phone] Red Blood Count 4.42 M/uL 3.90-5.40 Hemoglobin 12.4 gm/dL 11.6-15.8 Hematocrit 37.6 % 36.0-46.1 Mean Cell Volume 85.1 fl 80.9-99.0 Mean Corpuscular HGB 28.1 pg 25.9-32.7 Mean Corpuscular HGB Conc 33.0 g/dL 30.8-34.3 Platelet Count 186 K/uL 155-360 Red Cell Distri Width %CV 13.9 % 11.7-14.4 Mean Platelet Volume 10.3 fL 8.9-12.4 Laboratory test 05/21/2014 N2N/CCD Import Throat Strep See Note 15 finding Screen Throat-Beta Strept 12/10/2013 N2N/CCD Import Throat Beta Strep (See Note) 16 Culture Laboratory test 08/30/2013 N2N/CCD Import Screen Negative 17 finding RhIMMUNE Globulin See Note 18 Hemoglobin/Hematocrit 08/30/2013 N2N/CCD Import Hematocrit 31.1 % Low 36.0-46.1 Hemoglobin 10.3 gm/dL Low 11.6-15.8 Laboratory test 08/29/2013 N2N/CCD Import Placenta, Third See Note 19 finding Trimester Laboratory test 08/29/2013 N2N/CCD Import Antibody Identification Anti-D 20 finding Rapid Plasma Reagin Nonreactive Nonreactive 21 CBC 08/29/2013 N2N/CCD Import Hematocrit 34.0 % Low 36.0-46.1 Hemoglobin 11.1 gm/dL Low 11.6-15.8 Mean Cell Volume 84.2 fl 80.9-99.0 Mean Corpuscular HGB 27.5 pg 25.9-32.7 Mean Corpuscular HGB Conc 32.6 g/dL 30.8-34.3 Mean Platelet Volume 11.2 fL 8.9-12.4 Platelet Count 189 K/uL 155-360 Red Blood Count 4.04 M/uL 3.90-5.40 Red Cell Distri Width %CV 14.2 % 11.7-14.4 White Blood Count 12.5 K/uL High 3.1-10.7 Type And Screen 08/29/2013 N2N/CCD Import Antibody Screen Positive High Negative Patient Blood Type A Neg Urine Screen 01/04/2013 N2N/CCD Import Urine Bilirubin - Negative Negative Dipstick Urine Blood Negative Negative Urine Clarity Clear Clear Urine Color Yellow Yellow Urine Glucose - Dipstick Negative mg/dL Negative Urine Ketone Negative mg/dL Negative Urine Leuk Esterase Negative Negative Urine Nitrite - Dipstick Negative Negative Urine PH 6.0 Low 6.5-7.5 Urine Protein - Dipstick Negative mg/dL Negative Urine Specific [place] 1.010 1.010-1.030 Urine Urobilinogen - Dipstick 0.2 E.U./dL 0.2-1.0 Laboratory test 01/04/2013 N2N/CCD Import HCG, Quant 09539.0 mIU/mL 22 finding Laboratory test 12/22/2012 N2N/CCD Import HCG, Quant 1026.0 mIU/mL 23 finding Throat-Beta Strept 06/11/2012 N2N/CCD Import Throat Beta Strep (See Note) 24 Culture Laboratory test 03/25/2012 N2N/CCD Import Cytology Pap See Note 25 finding GC / Chlamydia 03/25/2012 N2N/CCD Import Chlamydia Positive GC Negative 26 CBC With Manual Diff 02/01/2012 N2N/CCD Import Abs Basophils 0 10^3/uL 0 -0.2 Abs Eosinophils 0.2 10^3/uL 0-0.6 Abs Lymphocytes 2.0 10^3/uL 1.0-4.8 Abs Monocytes 0.4 10^3/uL 0-0.8 Abs Neutrophils 4.1 10^3/uL 1.5-7.7 Abs Nucleated RBC 0 10^3/uL Band % 0 % 0-8 Basophil % 0 % 0-2 Blast % 0 % Eosinophils % 1.0 % 0-6 Hematocrit 41 % 35-47 Hemoglobin 13.7 g/dL 12.0-16.0 Lymphocytes % 37.0 % 25-47 Mean Corpuscular HGB Conc 34 g/dL 31-36 Mean Corpuscular Hemoglobin 30 pg 27-31 Mean Corpuscular Volume 88 fL 80-97 Mean Platelet Volume 9 um3 7.4-10.4 Metamyelocytes % 0 % 0-2 Monocytes % 4.0 % 0-13 Myelocytes % 0 % 0-1 Neutrophil % 58.0 % 38-83 Platelet Count 262 10^3/uL 150-450 Promyelocytes % 0 % RBC Morphology Normal Normal Reactive Lymph % 0 % 0-6 Red Blood Count 4.65 10^6/uL 4.0-5.4 Red Cell Distribution Width 13 % 10.5-15 White Blood Count 6.7 10^3/uL 4.8-10.8 Comp Metabolic Panel 02/01/2012 N2N/CCD Import Albumin 4.1 GM/DL 3.6- 5.4 Albumin/Globulin Ratio 1.8 1-3 Alkaline Phosphatase 55 U/L 50-176 Alt 15 U/L 14-54 Anion Gap 8.0 mmol/L 2-11 Ast 17 U/L 12-42 BUN/Creatinine Ratio 7.8 Low 8-20 Blood Urea Nitrogen 7 mg/dL 6-24 Calcium 9.5 mg/dL 8.1-9.9 Chloride 106 mmol/L 101-111 Co2 Carbon Dioxide 26.0 mmol/L 22-32 Creatinine 0.90 mg/dL 0.50-1.40 Egfr 102.7 >60 27 Egfr Non- 79.8 >60 Globulin 2.3 GM/DL 2-4 Glucose 89 mg/dL 70-100 Potassium 4.1 mmol/L 3.5-5.0 Sodium 140 mmol/L 133-145 Total Bilirubin 1.1 mg/dL High 0.1-1.0 28 Total Protein 6.4 GM/DL 6.2-8.1 Laboratory test 02/01/2012 N2N/CCD Import TSH (Thyroid 0.39 MIU/ML 0.34- 5.60 finding Stimulating Horm) Urine Culture & 02/01/2012 N2N/CCD Import Urine Culture (See Note) 29 Sensitivi CBS W/Automated 06/17/2011 N2N/CCD Import Bas% 0.4 % 0.0-1.1 Diff Baso # 0.03 K/uL 0.0-0.1 Eo% 2.7 % 0.0-6.6 Eos # 0.23 K/uL 0.0-0.5 Hematocrit 37.6 % 36.0-46.1 Hemoglobin 12.9 gm/dL 11.6-15.8 Lymph # 2.02 K/uL 0.8-3.4 Lymph % 23.8 % 17.0-46.1 Mean Cell Volume 88.7 fl 80.9-99.0 Mean Corpuscular HGB 30.4 pg 25.9-32.7 Mean Corpuscular HGB Conc 34.3 g/dL 30.8-34.3 Mean Platelet Volume 11.9 fL 8.9-12.4 [place] # 0.62 K/uL High 0.0-0.6 [place] % 7.3 % 4.3-13.2 Neut# 5.60 K/uL 1.0-7.0 Neut% 65.8 % 28.0-68.0 Platelet Count 266 K/uL 155-360 Red Blood Count 4.24 M/uL 3.90-5.40 Red Cell Distri Width %CV 12.4 % 11.7-14.4 Red Cell Distri Width SD 39.5 fl 3-47 White Blood Count 8.5 K/uL 3.1-10.7 Type And Screen 06/17/2011 N2N/CCD Import Antibody Screen Negative Patient Blood Type A Neg Laboratory test finding 06/17/2011 N2N/CCD Import Antibody Detection See Note 30 Hepatitis B Surface Antigen Nonreactive Nonreactive 31 Lead,Blood (Adult) 1 g/dL 0-19 32 Rapid Plasma Reagin Nonreactive Nonreactive 33 Rubella IgG Antibody Equivocal Reactive Low Urine Culture See Note 34 Varicella-Zoster Virus IgG Ab <0.91 Immune >1.09 i 35 Laboratory test 06/10/2011 N2N/CCD Import Urine HCG Positive High Negative finding (Qualitative) Urine Screen See Note 36 Urinalysis With 06/10/2011 N2N/CCD Import Urine Amorph Moderate Negative Microscopic Sediment Urine Bacteria Few None Seen Urine Bilirubin - Dipstick Negative Negative Urine Blood Negative Negative Urine Clarity Clear Clear Urine Color Yellow Yellow Urine Epithelial Cells Moderate None Seen 37 Urine Glucose - Dipstick Negative mg/dL Negative Urine Ketone Negative mg/dL Negative Urine Leuk Esterase Trace High Negative Urine Nitrite - Dipstick Negative Negative Urine PH 7.0 6.5-7.5 Urine Protein - Dipstick Negative mg/dL Negative Urine RBC None Seen rbc/hpf 0-7 Urine Specific [place] 1.015 1.010-1.030 Urine Urobilinogen - Dipstick 0.2 E.U./dL 0.2-1.0 Urine WBC None Seen wbc/hpf 0-7 Laboratory test 04/13/2011 N2N/CCD Import Throat-Beta Strep - <See 38 finding Culture Note> Throat-Beta 03/02/2011 N2N/CCD Import Throat-Beta Strep NF 39 Strept Culture 1 SENT BY , RT LOWER QUADRANT PAIN 2 Note: Persistent reduction for 3 months or more in an eGFR <60 mL/min/1.73 m2 defines CKD. Patients with eGFR values >/=60 mL/min/1.73 m2 may also have CKD if evidence of persistent proteinuria is present. The original MDRD equation for estimated GFR is not valid for patients less than 18 years of age. Additional information may be found at www.kdoqi.org. 3 URINE, CLEAN CATCH 4 R00.0 F41.1 5 Note: Persistent reduction for 3 months or more in an eGFR <60 mL/min/1.73 m2 defines CKD. Patients with eGFR values >/=60 mL/min/1.73 m2 may also have CKD if evidence of persistent proteinuria is present. The original MDRD equation for estimated GFR is not valid for patients less than 18 years of age. Additional information may be found at www.kdoqi.org. 6 [id number] 7 [id number] UPPER BACK PAIN 9 FIRST MORNING SPECIMENS GENERALLY CONTAIN THE HIGHEST CONCENTRATION OF HCG AND ARE RECOMMENDED FOR EARLY DETECTION OF . Method: Quidel QuickVue One-Step Immunoassay 10 URINE, CLEAN CATCH 11 URINE, CLEAN CATCH 12 Blood Type A NEG 13 Please Note: A nonreactive test result does not exclude the possibility of exposure to, or infection with syphilis. T. pallidum antibodies may be undetectable in some stages of the infection and in some clinical conditions. 14 PER EDWARD Talley R.N. IN [facility] L[facility]D DEPARTMENT, PATIENT RECEIVED RHOGAM ON 02/14/[address] MCNAIR'S OFFICE. Blood Type A NEG 15 Organism 1 ! BETA HEMOLYTIC STREP NON A Quantity ! MANY 16 RUN DATE: 12/13/13 [facility] LAB LIVE PAGE 1 RUN TIME: [address] [place] [address] Specimen Inquiry ----- Name: SHRAVANSONY M : [address]: Nakul Manjarrez MD Acct: [id number] Unit: [id number] AGE: 23 Location: [facility] Re12/10/13 SEX: F Status: REG ER ----- SPEC: [id number] IVY: 12/10/[address] [facility] [address]: Nakul Manjarrez MD REQ: [id number] RECD: 12/11/13-1101 STATUS: LAURIE MORENO DR: Pauline Winter MD _ SOURCE: THROAT SPDESC: ORDERED: Throat Beta Str ----- Procedure Result Verified Site ----- Throat Beta Strep Culture Final 12/13/13-08 ML Negative For Group A Beta Streptococcus ----- END OF REPORT * ML=Testing performed at Main Lab DEPARTMENT OF PATHOLOGY, [address] [place] [address] Roosevelt Roberts M.D. Director [facility] # [id number] CALLED YAMILETH Vega AT 0754 08/30/13 by MOSHE Blood Type A NEG 18 -------- Issue -------- Unit # Bld Type Product Status Date Time User Rsrvd ----- [id number] RHOGAM PRSMD TRFSD 08/30/13 0935 LAB.GSP Unit Satisfactory? No Apparent Contamination Volume: 2 ML TX Begin: 08/30/13 By AutoDft TX End : 08/30/13 By AutoDft ----- 19 OPERATION/PROCEDURE Delivery DIAGNOSIS: "PLACENTA": TRIVASCULAR CORD AND MEMBRANES, HISTOLOGICALLY UNREMARKABLE. MATURE PLACENTA, WITH INCREASED FIBRIN DEPOSIT. Marylin GROSS The specimen is additionally labeled "PLACENTA". This contains an 506 g. ovoid placenta measuring 17.9 x 14.0 x 3.7 cm in overall dimensions. A three-vessel umbilical cord is 30 cm in length, with a uniform diameter of 1.3 cm. It is free of true or false knots and inserts 2.3 cm away from the nearest placental margin. The subchorionic vessels arborize in a normal distribution to supply the entire green subchorionic surface. The membranes demonstrate a central rupture and are delicate and translucent without foul smell or discoloration. The maternal surface consists of beefy red cotyledons without significant adherent clot, calcification, nor infarction. Housekeeper/Custodian/Laundry Worker sections are submitted within three cassettes. AYLEEN/ kelly MICROSCOPIC Sections show normal appearing chorionic villi with appropriate vascularity. Intervillous fibrin is focally increased. The cord has three vessels without evidence of neutrophils in the vessel quiñones or Warthon's Jelly. The amniotic membranes have a single layer of cuboidal cells. The chorion is composed of eosinophilic decidualized cells with abundant cytoplasm. PRE OPERATIVE DIAGNOSIS Preg. labor REVIEW CODE CODE: I ----- Signed Electronically signed MARIE VICENTE MD 08/31/13 1017 ----- 20 Blood Type A NEG 21 PENDING; TEST PERFORMED ON MONDAYS AND Thursdays Approximate Gestational Age and Total BHCG Range: 0.2 - 1 Week........................5-50 mIU/mL 1 - 2 Weeks.....................50- 500 mIU/mL 2 - 3 Weeks..................100-5,000 mIU/mL 3 - 4 Weeks.................500-10,000 mIU/mL 4 - 5 Weeks...............1,000-50, 000 mIU/mL 5 - 6 Weeks.............10,000-100,000 mIU/mL 6 - 8 Weeks.............15,000-200,000 mIU/mL 2 - 3 Months............10,000-100, 000 mIU/mL 23 Result confirmed by repeat analysis. Approximate Gestational Age and Total BHCG Range: 0.2 - 1 Week........................5-50 mIU/mL 1 - 2 Weeks.....................50-500 mIU/mL 2 - 3 Weeks..................100-5, 000 mIU/mL 3 - 4 Weeks.................500-10,000 mIU/mL 4 - 5 Weeks...............1,000-50,000 mIU/mL 5 - 6 Weeks.............10,000-100, 000 mIU/mL 6 - 8 Weeks.............15,000-200,000 mIU/mL 2 - 3 Months............10,000-100,000 mIU/mL 24 RUN DATE: 06/14/12 [facility] LAB LIVE PAGE 1 RUN TIME: [address] [place] [address] Specimen Inquiry ----- Name: SONY DIAMOND : [address]: Brandee Krishnamurthy MD Acct: [id number] Unit: [id number] AGE: 22 Location: [facility] Re SEX: F Status: DEP ER ----- SPEC: [id number] IVY: 06/11/12-[address] [facility] [address]: Brandee Krishnamurthy MD REQ: [id number] RECD: 06/12/121003 STATUS: LAURIE MORENO DR: Moy DIAMOND,[facility] SOURCE: THROAT SPDESC: ORDERED: Throat Beta Str ----- Procedure Result Verified Site ----- Throat Beta Strep Culture Final 06/14/12-0856 ML Negative For Group A Beta Streptococcus ----- END OF REPORT * ML=Testing performed at Main Lab DEPARTMENT OF PATHOLOGY, [address] [place] [address] Roosevelt Roberts M.D. Director [facility] Permit # [id number] 25 Cytology Laboratory [address] [place] [address] [place] [address] CYTOLOGY REPORT Name: Sony DiamondKelvin : 1990 (Age: 21) Sex: F Location: [facility] Med. Rec. # Date Collected: 03/25/2012 Billing #: [id number] Date Received: 03/25/2012 Physician(s): STELLA OLIVARES NP Source of Specimen: ENDOCERVICAL/ECTOCERVICAL THIN PREP Clinical Information: Date of Last Menstrual Period: None Provided Specimen Adequacy: SATISFACTORY FOR EVALUATION. ADEQUATE ENDOCERVICAL/TRANSFORMATION ZONE. General Categorization: NEGATIVE FOR INTRAEPITHELIAL LESION OR MALIGNANCY. kfs Electronic Signature BABS Santos (ASCP) Reported: 03/29/2012 Cytology Outreach [facility] ICD-9 Code(s) V72.31 26 Special Testing Laboratory [address] [place] [address], [address] [place] [address] GC / CHLAMYDIA REPORT Name: Sony Diamond : 1990 (Age: 21) Sex: F Location: [facility] Med Rec. # Date Collected: 03/25/2012 Billing #: [id number] Date Received: 03/25/2012 Physician(s): STELLA OLIVARES NP Source of Specimen: ThinPrep , APTIMA Results: Neisseria gonorrhoeae NEGATIVE Chlamydia trachomatis POSITIVE Result called to Nancy and faxed to by Ella 03/28/12 1320 Comment: This analysis was performed using second generation nucleic acid amplification testing (NAAT). Reported: 03/28/[address] Ella [facility] Technical Laboratory [facility] ICD-9 Codes: V72.31 27 Because ethnic data is not always readily available, this report includes an eGFR for both -Americans and non- Americans. The National Kidney Disease Education Program (NKDEP) does not endorse the use of the MDRD equation for patients that are not between the ages of 18 and 70, are , have extremes of body size, muscle mass, or nutritional status, or are non- or non-. According to the National Kidney Foundation, irrespective of diagnosis, the stage of the disease is based on the level of kidney function: Stage Description GFR(mL/min/1.73 m(2)) 1 Kidney damage with normal or decreased GFR 90 2 Kidney damage with mild decrease in GFR 60- 89 3 Moderate decrease in GFR 30-59 4 Severe decrease in GFR 15-29 5 Kidney failure <15 (or dialysis) 28 A metabolite of Naproxen, O-desmethylnaproxen, has been shown to interfere with the Jendrassik-[place] method for measuring total bilirubin. Samples from patients who have taken Naproxen have shown spurious elevation in total bilirubin levels. 29 RUN DATE: 02/03/12 [facility] LAB LIVE PAGE 1 RUN TIME: [address] [place], [place] [address] Specimen Inquiry ----- Name: SONY DIAMOND : [address]: Stella Olivares Acct: [id number] Unit: [id number] AGE: 21 Location: [facility] Re02/01/12 SEX: F Status: REG REF ----- SPEC: [id number] IVY: 02/01/[address]: Stella Olivares REQ: [id number] RECD: 02/01/12 STATUS: COMP _ SOURCE: URINE SPDESC: ORDERED: Urine Culture QUERIES: Medent Number [id number] Urine Source: Clean Catch ----- Procedure Result Verified Site ----- Urine Culture Final 02/03/12-1114 ML Organism 1 NORMAL TRISTEN [place] Count 75-100,000 (Many) CFU/ML ----- END OF REPORT * ML=Testing performed at Main Lab DEPARTMENT OF PATHOLOGY, [address] [place] [address] Roosevelt Roberts M.D. Director [facility] Permit # [id number] 30 No reportable results 31 HBsAg not detected; does not exclude the possibility of exposure to or early acute infections with HBV. 32 The Centers for Disease Control and Prevention states blood lead levels less than 10 ug/dL in children have been associated with numerous adverse health effects. [facility] Guidelines: Blood lead levels in the range 5-9 ug/dL have been associated with adverse health effects in children aged 6 years and younger. Environmental Exposure: WHO <20 Occupational Exposure: OSHA Lead Std 40 Detection Limit=1 33 PENDING; TEST PERFORMED ON MONDAYS AND THURSDAYS 34 COLONY COUNT ! 1,000 - 5,000 CFU/ml Organism 1 ! URETHRAL TRISTEN 35 Nonimmune <0.91 Equivocal 0.91 - 1.09 Immune >1.09 Performed at: [facility] [address] [id number] Utility Worker Driver: Bg Godfrey MD, Phone: [phone] 06/10/11 LAB.MPK Deleted by Reflex Group [facility] 37 POSSIBLE UROGENITAL CONTAMINATION. 38 ------- RUN DATE: 04/15/11 [facility] NMI LIVE PAGE 1 RUN TIME: 815 Specimen Inquiry RUN USER: INTERFACE ----- Name: YESICA DIAMONDRA Braun Status: REG REF Re14/03 Age/Sex: 20/F Unit#: [id number] Location: [facility] : [birth year] ----- SPEC #: [id number] IVY: 04/13/11 STATUS: COMP REQ #: [id number] RECD: 04/13/[address]: Pauline Winter MD SOURCE: THROAT ENTR: 04/13/[address]: PILY: ORDERED: THROAT-BETA STR QUERIES: MEDENT REQUISITION # [id number] ACT WKST: BS 04/15/11 #1 ----- Procedure Result Verified Site ----- > THROAT-BETA STREP CULTURE Final 04/15/11-0815 ML NEGATIVE FOR GROUP A BETA STREPTOCOCCUS ----- - [facility] State Permit #[id number] [address] [place] [address] ----- DEPARTMENT OF PATHOLOGY, [address] [place] [address] [facility] Permit #[id number] Roosevelt Roberts M.D. Director Sayda Leigh M.D. Head Golf Professional ----- 39 NEGATIVE FOR GROUP A BETA STREPTOCOCCUS Procedures Date Code Description Status 05/31/2018 18929 Brief Emotional/Behav Assessment W/ Scoring Doc Per Completed Standard Inst 05/17/2018 33910 Brief Emotional/Behav Assessment W/ Scoring Doc Per Completed Standard Inst 08/29/2013 29409 Anesthesia,Neuraxial Labor Completed 08/11/2011 80931 Antepartum 7 Or More Total Office Visit Completed 07/09/2011 71031 Antepartum 7 Or More Total Office Visit Completed 01/26/2011 67849 Radiology, Knee 3 Views Completed 01/07/2011 28415 Destruct-Skin Tags/Lesions-Local Anesthesia - First Lesion Completed 12/26/2008 40776 Visual Screening Test Of Visual Acuity, Quantitative, Completed Bilateral 1991 1 Balance Forward 03/26/93 Completed Encounters Type Date Location Provider Dx Diagnosis Office Visit 07/21/2018 [facility] Veronica, F41.1 Generalized anxiety 8:30a Jonah Banks, disorder COMPUTER AIDED DESIGN OPERATOR Office Visit 07/11/2018 [facility] Karen Sharma, R10.31 Right lower 4:30p Jonah GALLEGOS COMPUTER AIDED DESIGN OPERATOR quadrant pain Office Visit 06/21/2018 [facility] Veronica, F41.1 Generalized anxiety 8:15a Jonah Banks, disorder COMPUTER AIDED DESIGN OPERATOR Office Visit 05/31/2018 [facility] Justin Martin, F41.1 Generalized anxiety 8:30a Jonah Banks, disorder COMPUTER AIDED DESIGN OPERATOR Office Visit 05/17/2018 [facility] Justin Martin, Z00.01 Encounter for 9:45a Jonah Banks, general adult COMPUTER AIDED DESIGN OPERATOR medical exam w abnormal findings F41.1 Generalized anxiety disorder R00.0 Tachycardia, unspecified Z23 Encounter for immunization Office Visit 05/03/2018 [facility] Mc Dumont, R05 Cough 10:45a Justin Mckenzie MD RD Office Visit 09/30/2016 Family Martin, N92.6 Irregular 9:00a Justin Banks menstruation, RD , COMPUTER AIDED DESIGN OPERATOR unspecified Office Visit 04/15/2016 Family Martin, H10.89 Other conjunctivitis 11:30a Justin Banks RD , COMPUTER AIDED DESIGN OPERATOR Office Visit 01/21/2016 [facility], S70.361A Insect bite 2:30p [facility] [place] Kesha DiggsKelvin, (nonvenomous), right RD COMPUTER AIDED DESIGN OPERATOR-C thigh, initial encounter Office Visit 08/30/2014 [facility] Veronica, 727.05 Tenosynovitis Hand & 9:00a [facility] [place] Jocelyn Wrist Other RD , COMPUTER AIDED DESIGN OPERATOR V15.83 Personal History Of Underimmunization Status V65.5 Person W/ Feared Complaint In Whom No Diagnosis Was Made Office Visit 03/13/2011 [facility] Puckett 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
--- OUTSIDE RECORDS SUMMARY | 2018-08-13 14:40 | XMS REPORT | Continuity of Care Document ---
:1990 External Reference #:[id number] Author Name Jocelyn Martin FNP Address [address] [place] [address] Care Team Providers Name Role Phone Jocelyn Martin NP Care Team Information Computer Drafter Unavailable Jocelyn Martin, SAP SENIOR DEVELOPER Primary Care Physician Unavailable Payers Date Identification Numbers Payment Provider Subscriber Effective: 2010 Policy Number: [id number] [employer] Sony Diamond PayID: [id number] [address] [place] [address] Advance Directives Description No Information Available Problems [...] Diet Patient follows no dietary restrictions 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 Tobacco Use Start: Unknown Never Smoked Cigarettes [...] -2 F41.1 Clune, 19 bs tablet by Aida mouth three eigh, JEWELRY SALESPERSON times a day Lorazepam 06/21/19 Active Tablets 0.5mg 18tab take 1/2 to F41.1 Clune, 19 s 1 tablet by Jenniferl mouth prn eigh, JEWELRY SALESPERSON for anxiety and panic attacks mdd#2 Reference #: [id number] Escitalopram 05/23/19 Active Tablets 20mg 45tab 1 and 1/2 Clune, Oxalate 19 s tabs PO Q hs [facility], JEWELRY SALESPERSON Buspirone HCL 05/31/19 Hx Tablets 5mg 120ta take 1 -2 F41.1 Clune, 19 - bs tablet by Aida 06/21/19 mouth three eigh, JEWELRY SALESPERSON 19 times a day No Active 05/17/19 [...] Tablets 500mg 14tab one by mouth N92.6 Cljb, 17 - s twice a day Tiffniferl 10/08/19 x 7 days britni, JEWELRY SALESPERSON 17 Sulfacetamide 04/15/20 Hx Solution 10% 15ml 1-2 drops H10.89 Veronica Sodium 16 - each eye 3-5 Jenniferl 10/01/19 times a day JAVIER ryder 17 for 5 days Prednisone 01/21/20 Hx Tablets 20mg 2tabs Take 2 S70.361A Bonifacio 16 - tablet by Kesha 01/22/20 mouth one YISEL Owens 16 time for inflammation No Active 08/31/19 Hx Unknown Medications 15 - 08/31/19 15 Naproxen 08/31/19 Hx Tablets 500mg 60tab take one 727.05 Clune, 15 - s tablet by Jenniferl 01/21/20 mouth twice eigh, JEWELRY SALESPERSON 16 a day . take with food Thumb 08/31/19 Hx Misc use as 727.05 Clune, Splint/Right 15 - needed for Aida Small 01/21/20 RT thumb eigh, JEWELRY SALESPERSON 16 tenosynoviti s 8 Hour Pain 05/21/19 [...] CPT Code Status Date Vaccine Lot # [id number] Given 05/17/2018 Td Preservative Free For Use In Individuals 7 Yrs [id number] Or Older 58142 Given 08/30/2014 Varicella (Chicken Pox) Vaccine [id number] 68563 Given 04/10/2013 flu vaccination 56514 Given 04/15/2012 flu vaccination 92121 Given 06/17/2011 flu vaccination 61493 Given 01/02/2009 Meningococcal Conjugate Vaccine Serogroups For Intramuscular Use 30872 Given 01/02/2009 Tdap injection 91282 Given 12/26/2008 flu vaccination 96803 Given 12/26/2008 Gardasil 39013 Given 03/19/2008 Gardasil 16605 Given 01/18/2008 Tdap injection 42932 Given 01/18/2008 Gardasil 96770 Given 11/21/2002 Hepatitis B Vaccine Pediatric/Adolescent 96210 Given 11/21/2002 Varicella (Chicken Pox) Vaccine 98749 Given 08/12/2001 Hepatitis B Vaccine Pediatric/Adolescent 87327 Given 12/12/1996 MMR Vaccine, Live, For Subcutaneous Use 78481 Given 12/12/1993 Poliovirus Vaccine Subcutaneous Or Intramuscular 10264 Given 12/12/1993 DTaP Vaccine Younger Than 7 70806 Given 04/15/1993 Hepatitis B Vaccine Pediatric/Adolescent 49036 Given 04/15/1993 Poliovirus Vaccine Subcutaneous Or Intramuscular 22650 Given 04/15/1993 DTaP Vaccine Younger Than 7 63509 Given 09/17/1992 MMR Vaccine, Live, For Subcutaneous Use 35309 Given 1991 DTaP Vaccine Younger Than 7 59796 Given 1991 Hib PRP-T Conjugate 4 Dose Schedule 79276 Given 1991 Poliovirus Vaccine Subcutaneous Or Intramuscular 40141 Given 1991 DTaP Vaccine Younger Than 7 72435 Given 1991 Hib PRP-T Conjugate 4 Dose Schedule 69557 Given 1991 Poliovirus Vaccine Subcutaneous Or Intramuscular 02754 Given 1991 DTaP Vaccine Younger Than 7 79995 Given 1991 Hib PRP-T Conjugate 4 Dose Schedule Vital Signs Date Vital Result Comment 07/21/2018 8:49am BP Systolic 104 mmHg BP Diastolic 58 mmHg Heart Rate 82 /min Respiratory Rate 15 /min Height 58 inches 4'10" Weight 132.00 lb BMI (Body Mass Index) 27.6 kg/m2 BSA (Body Surface Area) 1.53 m2 [place] body weight in kilograms 45 kg O2 [...] kg/m2 BSA (Body Surface Area) 1.52 m2 [place] body weight in kilograms 45 kg O2 % BldC Oximetry 99 % Ra 05/31/2018 8:36am BP Systolic 120 mmHg BP Diastolic 70 mmHg Body Temperature 98.7 F Heart Rate 84 /min Respiratory Rate 16 /min Height 59 inches 4'11" Weight 126.00 lb BMI (Body Mass Index) 25.4 kg/m2 BSA (Body Surface Area) 1.52 m2 [place] body weight in kilograms 45 kg O2 % BldC Oximetry 98 % 05/17/2018 9:43am BP Systolic 110 mmHg BP Diastolic 72 mmHg Body Temperature 97.9 F Heart Rate 71 /min Respiratory Rate 20 /min Height 59 inches 4'11" Weight 126.12 lb BMI (Body Mass Index) 25.5 kg/m2 BSA (Body Surface Area) 1.52 m2 [place] body weight in kilograms 45 kg O2 % BldC Oximetry 99 % Ra Pain Level 0 05/03/2018 10:33am BP Systolic Sitting Left Arm 110 mmHg BP Diastolic Sitting Left Arm 70 mmHg Body Temperature 98.6 F Heart Rate 82 /min Respiratory Rate 16 /min Height 59 inches 4'11" Weight 130.00 lb BMI (Body Mass Index) 26.3 kg/m2 BSA (Body Surface Area) 1.54 m2 [place] body weight in kilograms 45 kg O2 % BldC Oximetry 99 % 09/30/2016 8:51am BP Systolic Sitting Left Arm 110 mmHg BP Diastolic Sitting Left Arm 68 mmHg Heart Rate 72 /min Respiratory Rate 18 /min Height 59 inches 4'11" Weight 125.38 lb BMI (Body Mass Index) 25.3 kg/m2 BSA (Body Surface Area) 1.51 m2 [place] body weight in kilograms 45 kg 04/15/2016 11:44am BP Systolic Sitting Left Arm 118 mmHg BP Diastolic Sitting Left Arm 72 mmHg Body Temperature 97.7 F Height 59 inches 4'11" Weight 118.00 lb BMI (Body Mass Index) 23.8 kg/m2 BSA (Body Surface Area) 1.47 m2 [place] body weight in kilograms 45 kg 01/21/2016 2:26pm BP Systolic Sitting Left Arm 118 mmHg BP Diastolic Sitting Left Arm 60 mmHg Body Temperature 99.3 F Heart Rate 64 /min Respiratory Rate 16 /min Height 59 inches 4'11" Weight 117.50 lb BMI (Body Mass Index) 23.7 kg/m2 BSA (Body Surface Area) 1.47 m2 [place] body weight in kilograms 45 kg 08/30/2014 [...] 6.5-7.5 Ua Blood negative Negative Ua Specific [place] 1.015 1.010-1.030 Ua Ketones negative Negative Ua Bilirubin negative Negative Ua Glucose negative Negative CBC W/Automated Diff 07/11/2018 [facility] White Blood 8.3 K/uL N 3.1-10.[address] [place] [address] [phone] Red Blood Count 4.40 M/uL N 3.90-5.40 [...] 40.4-72.8 Lymph % 36.2 % N 20.0-42.0 [place] % 7.2 % N 4.3-13.2 Eo% 2.8 % N 0.0-6.6 Bas% 0.4 % N 0.0-1.1 Neut# 4.41 K/uL N 1.8-7.0 Lymph # 2.99 K/uL N 1.0-4.0 [place] # 0.59 K/uL N 0.3-0.9 Eos # 0.23 K/uL N 0.0-0.5 Baso # 0.03 K/uL N 0.0-0.1 Comprehensive Metabolic 07/11/2018 [facility] Glucose 81 mg/dL N 74-[address] [place] [address] [phone] BUN 13 mg/dL N 7-18 Creatinine 0.9 [...] 45-117 Ua RFX Micro & Culture 07/11/2018 [facility] Urine Color YELLOW Yellow II [address] [place] [address] [phone] Urine Clarity CLEAR Clear Urine Glucose - Dipstick NEGATIVE mg/dL Negative Urine Bilirubin - Dipstick NEGATIVE Negative Urine Ketone NEGATIVE mg/dL Negative Urine Specific [place] 1.020 N 1.010-1.030 Urine Blood NEGATIVE Negative Urine PH 6.0 Low 6.5-7.5 Urine Protein - Dipstick NEGATIVE mg/dL Negative Urine Urobilinogen - Dipstick 0.2 E.U./dL N 0.2-1.0 Urine Nitrite - Dipstick NEGATIVE Negative Urine Leuk Esterase NEGATIVE Negative Source: URINE, CLEAN CAT <SEE NOTE> 3 Laboratory test finding 07/11/2018 [facility] Lipase 142 U/L N 56-289 [address] [place] [address] [phone] HCG,Serum (Qualitative) NEGATIVE (Negative) Urine Dipstick 05/17/2018 [facility] Ua Color - Yellow Ua Clarity cloudy Clear Ua Leuko - Negative Ua Nitrite - Negative Ua Urobilinogen 0.2 0.2 - 1.0 E.U./dL Ua Protein - Negative Ua PH 7.0 6.5-7.5 Ua Blood - Negative Ua Specific [place] 1.015 1.010-1.030 Ua Ketones - Negative Ua Bilirubin - Negative Ua Glucose - Negative Laboratory test 05/17/[address] Thyroid Stim 1.94 uIU/mL N 0.30-4.20 4 finding [address] [facility] [place] [address] [phone] CBC W/Automated 05/17/[address] White Blood 5.6 K/uL N 3.1- 10.7 Diff [address] [facility] [place] [address] [phone] Red Blood Count 4.66 M/uL N 3.90-5.40 [...] 40.4-72.8 Lymph % 31.9 % N 20.0-42.0 [place] % 6.6 % N 4.3-13.2 Eo% 3.4 % N 0.0-6.6 Bas% 0.5 % N 0.0-1.1 Neut# 3.24 K/uL N 1.8-7.0 Lymph # 1.79 K/uL N 1.0-4.0 [place] # 0.37 K/uL N 0.3-0.9 Eos # 0.19 K/uL N 0.0-0.5 Baso # 0.03 K/uL N 0.0-0.1 Comprehensive Metabolic 05/17/[address] Glucose 92 mg/dL N 74 -106 Panel [address] [place] [address] [phone] BUN 13 mg/dL N 7-18 Creatinine 1.0 [...] U/L N 45-117 CBC Auto Diff 03/06/2018 [facility] White Blood 8.7 10^3/uL N 3.5-10.8 6 [phone] Count Red Blood Count 4.71 10^6/uL N [...] Blood Cells % 0.3 Laboratory test 03/06/2018 [facility] Monospot Negative Negative 7 finding [phone] Urine HCG 12/23/2017 [facility] Urine HCG NEGATIVE Negative 8, 9 (Qualitative) [address] (Qualitative) [place], [place] [address] [phone] Source: URINE, CLEAN CAT <SEE NOTE> 10 Ua RFX Micro & Culture 12/23/2017 [facility] Urine Color YELLOW Yellow II [address] [place], [place] [address] [phone] Urine Clarity CLEAR Clear Urine Glucose - Dipstick NEGATIVE mg/dL Negative Urine Bilirubin - Dipstick NEGATIVE Negative Urine Ketone NEGATIVE mg/dL Negative Urine Specific [place] 1.015 N 1.010-1.030 Urine Blood NEGATIVE Negative Urine PH 7.5 N 6.5-7.5 Urine Protein - Dipstick NEGATIVE mg/dL Negative Urine Urobilinogen - Dipstick 0.2 E.U./dL N 0.2-1.0 Urine Nitrite - Dipstick NEGATIVE Negative Urine Leuk Esterase NEGATIVE Negative Source: URINE, CLEAN CAT <SEE NOTE> 11 Hemoglobin/Hematocrit 05/11/2015 [facility] Hemoglobin 11.3 Low 11.6-15.[address] gm/dL [place], [place] [address] [phone] Hematocrit 34.3 % Low 36.0-46.1 Laboratory test 05/10/2015 [facility] Screen NEGATIVE [address] [place], [place] [address] [phone] Laboratory test 05/10/2015 [facility] Treponema Nonreactive [address] [place] [address] [place] [phone] Type And Screen 05/10/2015 [facility] Patient Blood A NEG [address] Type [place], [place] [address] [phone] Antibody Screen POSITIVE High Negative Laboratory test 05/10/2015 [facility] Antibody RHOGAM D [address] Identification [place], [place] [address] [phone] CBC 05/09/2015 [facility] White Blood Count 6.1 K/uL 3.1-[address] 0[address]7 [place] [address] [phone] Red Blood Count 4.04 M/uL 3.90-5.40 Hemoglobin 11.7 gm/dL 11.6-15.8 Hematocrit 34.6 % Low 36.0-46.1 Mean Cell Volume 85.6 fl 80.9-99.0 Mean Corpuscular HGB 29.0 pg 25.9-32.7 Mean Corpuscular HGB Conc 33.8 g/dL 30.8-34.3 Platelet Count 201 K/uL 155-360 Red Cell Distri Width %CV 13.9 % 11.7-14.4 Mean Platelet Volume 10.5 fL 8.9-12.4 CBC 05/08/2015 [facility] White Blood Count 10.5 K/uL 3.1-10.[address] [place] [address] [phone] Red Blood Count 4.42 M/uL 3.90-5.40 Hemoglobin [...] - Dipstick Negative mg/dL Negative Urine Specific [place] 1.010 1.010-1.030 Urine Urobilinogen - Dipstick 0.2 E.U./dL 0.2-1.0 Laboratory test 01/04/2013 N2N/CCD Import HCG, Quant 29185.0 mIU/mL 22 finding Laboratory test 12/22/2012 N2N/CCD [...] 30.8-34.3 Mean Platelet Volume 11.9 fL 8.9-12.4 [place] # 0.62 K/uL High 0.0-0.6 [place] % 7.3 % 4.3-13.2 Neut# 5.60 K/uL [...] RBC None Seen rbc/hpf 0-7 Urine Specific [place] 1.015 1.010-1.030 Urine Urobilinogen - Dipstick 0.2 [...] information may be found at www.[email or web address].org. 6 [id number] UPPER BACK PAIN 9 FIRST MORNING SPECIMENS GENERALLY CONTAIN THE HIGHEST CONCENTRATION OF HCG AND ARE RECOMMENDED FOR EARLY DETECTION OF . Method: Archyidel QuickVue One-Step Immunoassay 10 URINE, CLEAN CATCH 11 URINE, CLEAN CATCH 12 Blood Type A NEG 13 Please Note: A nonreactive test result does not exclude the possibility of exposure to, or infection with syphilis. T. pallidum antibodies may be undetectable in some stages of the infection and in some clinical conditions. 14 PER EDWARD Talley R.N. IN [facility] L+D DEPARTMENT, PATIENT RECEIVED RHOGAM ON 02/14/[address] MCNAIR'S OFFICE. Blood Type A NEG 15 Organism 1 ! BETA HEMOLYTIC STREP NON A Quantity ! MANY 16 RUN DATE: 12/13/13 [facility] LAB LIVE PAGE 1 RUN TIME: [address] [place] [address] Specimen Inquiry ----- Name: SHRAVANSONY M : [address]: Nakul Manjarrez MD Acct: [id number] Unit: [id number] AGE: 23 Location: [facility] Re12/10/13 SEX: F Status: REG ER ----- SPEC: [id number] IVY: 12/10/13 [facility] DR: Nakul Manjarrez MD REQ: [id number] RECD: 12/11/13-1101 STATUS: LAURIE MORENO DR: Pauline Winter MD _ SOURCE: THROAT SPDESC: ORDERED: Throat Beta Str ----- Procedure Result Verified Site ----- Throat Beta Strep Culture Final 12/13/13-08 ML Negative For Group A Beta Streptococcus ----- END OF REPORT * ML=Testing performed at Main Lab DEPARTMENT OF PATHOLOGY, [address] [place] [address] Roosevelt Roberts M.D. Director [facility] # [id number] 17 CALLED YAMILETH Vega AT 0754 08/30/13 by GSP Blood Type A NEG 18 -------- Issue -------- Unit # Bld Type Product Status Date Time User Rsrvd ----- [id number] RHOGAM PRSMD TRFSD 08/30/13 0935 LAB.GSP Unit Satisfactory? No Apparent Contamination Volume: 2 ML TX Begin: 08/30/13 By AutoDft TX End : 08/30/13 By AutoDft ----- 19 OPERATION/PROCEDURE Delivery DIAGNOSIS: "PLACENTA": TRIVASCULAR CORD AND MEMBRANES, HISTOLOGICALLY UNREMARKABLE. MATURE PLACENTA, WITH INCREASED FIBRIN DEPOSIT. /kelly GROSS The specimen is additionally labeled "PLACENTA". [...] without significant adherent clot, calcification, nor infarction. Ice Resurfacing Machine Operators sections are submitted within three cassettes. / [facility] MICROSCOPIC Sections show normal appearing chorionic villi [...] Signed Electronically signed MARIE VICENTE MD 08/31/13 1357 ----- 20 Blood Type A NEG 21 [...] 3 Months............10,000-100,000 mIU/mL 24 RUN DATE: 06/14/12 [facility] LAB LIVE PAGE 1 RUN TIME: [address] [place] [address] Specimen Inquiry ----- Name: SONY DIAMOND : [address]: Brandee Krishnamurthy MD Acct: [id number] Unit: [id number] AGE: 22 Location: [facility] Re SEX: F Status: DEP ER ----- SPEC: [id number] IVY: 06/11/12-[address]: Brandee Krishnamurthy MD REQ: [id number] RECD: 06/12/12-1003 STATUS: LAURIE MORENO DR: Moy DIAMOND,[facility] SOURCE: THROAT SPDESC: ORDERED: Throat Beta Str ----- Procedure Result Verified Site ----- Throat Beta Strep Culture Final 06/14/12-0856 ML Negative For Group A Beta Streptococcus ----- END OF REPORT * ML=Testing performed at Main Lab DEPARTMENT OF PATHOLOGY, [address] [place] [address] Roosevelt Roberts M.D. Director [facility] Permit # [id number] 25 Cytology Laboratory [address] [place] [address], [facility] [address] [place] [address] CYTOLOGY REPORT Name: Sony Diamond : 1990 (Age: 21) Sex: F Location: [facility] Med. Rec. # Date Collected: 03/25/2012 Billing #: [id number] Date Received: 03/25/2012 Physician(s): STELLA OLIVARES NP Source of Specimen: ENDOCERVICAL/ECTOCERVICAL THIN PREP Clinical Information: Date of Last Menstrual Period: None Provided Specimen Adequacy: SATISFACTORY FOR EVALUATION. ADEQUATE ENDOCERVICAL/TRANSFORMATION ZONE. General Categorization: NEGATIVE FOR INTRAEPITHELIAL LESION OR MALIGNANCY. kfs Electronic Signature BABS Santos (ASCP) Reported: 03/29/2012 Cytology Outreach [facility] ICD-9 Code(s) V72.31 26 Special Testing Laboratory [address] [place] [address], [address] [place] [address] GC / CHLAMYDIA REPORT Name: Sony Diamond : 1990 (Age: 21) Sex: F Location: [facility] Med Rec. # Date Collected: 03/25/2012 Billing #: [id number] Date Received: 03/25/2012 Physician(s): STELLA OLIVARES NP Source of Specimen: ThinPrep , APTIMA Results: Neisseria gonorrhoeae NEGATIVE Chlamydia trachomatis POSITIVE Result called to Nancy and faxed to by Ella 03/28/12 1320 Comment: This analysis was performed using second generation nucleic acid amplification testing (NAAT). Reported: 03/28/[address] Ella [facility] Technical Laboratory [facility] ICD-9 Codes: V72.31 27 Because [...] has been shown to interfere with the Jendrassik-Dominick method for measuring total bilirubin. Samples from patients who have taken Naproxen have shown spurious elevation in total bilirubin levels. 29 RUN DATE: 02/03/12 [facility] LAB LIVE PAGE 1 RUN TIME: [address] [place], [place] [address] Specimen Inquiry ----- Name: SONY DIAMOND : [address]: Stella Olivares Acct: [id number] Unit: [id number] AGE: 21 Location: [facility] Re02/01/12 SEX: F Status: REG REF ----- SPEC: [id number] IVY: 02/01/[address]: Stella Olivares REQ: [id number] RECD: 02/01/12 STATUS: COMP _ SOURCE: URINE SPDESC: ORDERED: Urine Culture QUERIES: Medent Number [id number] Urine Source: Clean Catch ----- Procedure Result Verified Site ----- Urine Culture Final 02/03/12-1114 ML Organism 1 NORMAL TRISTEN [place] Count 75-100,000 (Many) CFU/ML ----- END OF REPORT * ML=Testing performed at Main Lab DEPARTMENT OF PATHOLOGY, [address] [place] [address] Roosevelt Roberts M.D. Director [facility] Permit # [id number] 30 No reportable results 31 HBsAg not detected; does not exclude the possibility of exposure to or early acute infections with HBV. 32 The Centers for Disease Control and Prevention states blood lead levels less than 10 ug/dL in children have been associated with numerous adverse health effects. [facility] Guidelines: Blood lead levels in the [...] 1.09 Immune >1.09 Performed at: [facility] [address] [id number] Home Supervisor: Bg Godfrey MD, Phone: [phone] 06/10/11 LAB.MPK Deleted by Reflex Group [facility] 37 POSSIBLE UROGENITAL CONTAMINATION. 38 ------- RUN DATE: 04/15/11 [facility] NMI LIVE PAGE 1 RUN TIME: 815 Specimen Inquiry RUN USER: INTERFACE ----- Name: SONY DIAMOND Status: REG REF Re14/03 Age/Sex: 20/F Unit#: [id number] Location: [facility] : [birth year] ----- SPEC #: [id number] IVY: 04/13/11 STATUS: COMP REQ #: [id number] RECD: 04/13/[address]: Pauline Winter MD SOURCE: THROAT ENTR: 04/13/[address]: PILY: ORDERED: THROAT-BETA STR QUERIES: MEDENT REQUISITION # [id number] ACT WKST: BS 04/15/11 #1 ----- Procedure Result Verified Site ----- > THROAT-BETA STREP CULTURE Final 04/15/11-0815 ML NEGATIVE FOR GROUP A BETA STREPTOCOCCUS ----- - [facility] State Permit #[id number] [address] [place] [address] ----- DEPARTMENT OF PATHOLOGY, [address] [place] [address] [facility] Permit #[id number] Roosevelt Roberts M.D. Director Sayda Leigh M.D. [employer]or ----- 39 NEGATIVE FOR GROUP A BETA STREPTOCOCCUS Procedures Date Code Description Status 05/31/2018 12390 Brief Emotional/Behav Assessment W/ Scoring Doc Per Completed Standard Inst 05/17/2018 15741 Brief Emotional/Behav Assessment W/ Scoring Doc Per Completed Standard Inst 08/29/2013 06052 Anesthesia,Neuraxial Labor Completed 08/11/2011 28516 Antepartum 7 Or More Total Office Visit Completed 07/09/2011 29500 Antepartum 7 Or More Total Office Visit Completed 01/26/2011 19502 Radiology, Knee 3 Views Completed 01/07/2011 62334 Destruct-Skin Tags/Lesions-Local Anesthesia - First Lesion Completed 12/26/2008 78508 Visual Screening Test Of Visual Acuity, Quantitative, Completed Bilateral 1991 1 Balance Forward 03/26/93 Completed Encounters Type Date Location Provider Dx Diagnosis Office Visit 07/21/2018 [facility] Justin Martin, F41.1 Generalized anxiety 8:30a Jonah Banks, disorder JEWELRY SALESPERSON Office Visit 07/11/2018 [facility] Karen Sharma, R10.31 Right lower 4:30p Jonah GALLEGOS JEWELRY SALESPERSON quadrant pain Office Visit 06/21/2018 [facility] Justin Martin, F41.1 Generalized anxiety 8:15a Jonah Banks, disorder JEWELRY SALESPERSON Office Visit 05/31/2018 [facility] Justin Martin, F41.1 Generalized anxiety 8:30a Jonah Banks, disorder JEWELRY SALESPERSON Office Visit 05/17/2018 [facility] Justin Martin, Z00.01 Encounter for 9:45a Jonah Banks, general adult JEWELRY SALESPERSON medical exam w abnormal findings F41.1 Generalized anxiety disorder R00.0 Tachycardia, unspecified Z23 Encounter for immunization Office Visit 05/03/2018 [facility] Mc Dumont, R05 Cough 10:45a Justin Mckenzie MD RD Office Visit 09/30/2016 Family Martin, N92.6 Irregular 9:00a Justin Banks menstruation, RD , JEWELRY SALESPERSON unspecified Office Visit 04/15/2016 Family Martin, H10.89 Other conjunctivitis 11:30a Justin Banks RD , JEWELRY SALESPERSON Office Visit 01/21/2016 Family Valdovinos S70.361A Insect bite 2:30p Medicine [place] Kesha Owens, (nonvenomous), right RD JEWELRY SALESPERSON-C thigh, initial encounter Office Visit 08/30/2014 Family Veronica, 727.05 Tenosynovitis Hand & 9:00a Medicine [place] Jocelyn Wrist Other RD , JEWELRY SALESPERSON V15.83 Personal History Of Underimmunization Status V65.5 Person W/ Feared Complaint In Whom No Diagnosis Was Made Office Visit 03/13/2011 Orthopaedic Nakul Puckett 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
[2018-08-13 14:51] VITALS: BP 115/69
--- NOTE | 2018-08-13 15:12 | UC ---
Skin Complaint HPI - HPI Summary HPI Summary: Pt presents with c/o of continued pain and eruption of pustular "bumps" on left arm and "crusting" of scabs around edge of pictures of new tattoo. Pt was seen here on 08/03/18 and given RX for Bactrim, culture was taken. Sensitivity cam back positive for bactrim. no changes made to RX. Pt states that skin eruptions have improved. but crusting around outline of pictures of tattoo. - History of Current Complaint Chief Complaint: UCSkin Time Seen by Provider: 08/13/18 15:03 Stated Complaint: SKIN COMPLAINT Hx Obtained From: Patient Hx Last Menstrual Period: ablation ?: No Onset/Duration: Gradual Onset, Lasting Days, Still Present Skin Exposure Onset/Duration: Weeks Ago Timing: Constant Onset Severity: Mild Current Severity: Mild Pain Intensity: 8 Location: Discrete - left upper arm. Character: Swelling, Pain, Redness, Painful Aggravating Factor(s): Touch Alleviating Factor(s): Nothing Associated Signs & Symptoms: Positive: Drainage, Tenderness Related History: Other: - tattoo - Allergy/Home Medications Allergies/Adverse Reactions: Allergies Allergy/AdvReac Type Severity Reaction Status Date / Time No Known Allergies Allergy Verified 08/13/18 14:52 PMH/Surg Hx/FS Hx/Imm Hx Previously Healthy: Yes - Surgical History Surgical History: Yes Surgery Procedure, Year, and Place: tubal ligation. uterine ablation - Family History Known Family History: Positive: Non-Contributory Negative: Cardiac Disease, Hypertension, Diabetes - Social History Occupation: Employed Full-time Lives: With Family Alcohol Use: Occasionally Substance Use Type: None Smoking Status (MU): Never Smoked Tobacco Have You Smoked in the Last Year: No - Immunization History Vaccination Up to Date: No Review of Systems All Other Systems Reviewed And Are Negative: Yes Constitutional: Positive: Negative Skin: Positive: Other - pustular eruptions, dired, golde scabs, mild swelling, Eyes: Positive: Negative ENT: Positive: Negative Respiratory: Positive: Negative Cardiovascular: Positive: Negative Gastrointestinal: Positive: Negative Genitourinary: Positive: Negative Motor: Positive: Negative Neurovascular: Positive: Negative Musculoskeletal: Positive: Negative Neurological: Positive: Negative Psychological: Positive: Negative Is Patient Immunocompromised?: No Physical Exam Triage Information Reviewed: Yes Appearance: Well-Appearing Vital Signs: Initial Vital Signs Temp 97.9 F 08/13/18 14:44 Pulse 78 08/13/18 14:44 Resp 15 08/13/18 14:44 BP 115/69 08/13/18 14:44 Pulse Ox 100 08/13/18 14:44 Vital Signs Reviewed: Yes Eye Exam: Normal ENT: Positive: Hearing grossly normal Neck exam: Normal Respiratory Exam: Normal Respiratory: Positive: No respiratory distress Musculoskeletal Exam: Normal Neurological Exam: Normal Psychological Exam: Normal Skin Exam: Other - tattoo left upper arm pustular eruptions, dried, "kern" scabs, mild swelling, Course/Dx - Differential Diagnoses - Skin Complaint Differential Diagnoses: Abscess, Cellulitis, Impetigo - Diagnoses Provider Diagnosis: Cellulitis, Impetigo Discharge - Sign-Out/Discharge Documenting (check all that apply): Patient Departure All imaging exams completed and their final reports reviewed: No Studies - Discharge Plan Condition: Stable Disposition: HOME Prescriptions: Cephalexin CAP* [Keflex 500 CAP*] 500 mg PO Q8H #21 cap Mupirocin 2% OINT* [Bactroban 2 % Oint*] 1 applic TOPICAL Q12H 7 Days #1 tube Patient Education Materials: Acute Wounds (ED) Referrals: Maria E Plaza MD [Medical Doctor] - As Soon As Possible Adrianne Martin NP [Primary Care Provider] - If Needed - Billing Disposition and Condition Condition: STABLE Disposition: Home - Attestation Statements Provider Attestation: I was available for consult. This patient was seen by the JOSE. The patient was not presented to, seen by, or examined by me. -Tiera
== END 2018-08-13 15:24 | disposition home or self-care (01) ==
LOC: UCCORT 13:57
DX: L03.114 Cellulitis of left upper limb (principal); L01.00 Impetigo, unspecified
CPT/HCPCS: 99212; G0463

== ENCOUNTER 2019-03-06 11:08 | Emergency (ER) | payer OTHER ==
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
--- NOTE | 2019-03-06 12:52 | UC ---
Throat Pain/Nasal Jesus HPI - HPI Summary HPI Summary: 28-year-old female with a sore throat over the past 3 days. She denies any other cold symptoms. Denies any nausea vomiting or diarrhea. No known exposure to strep. - History of Current Complaint Stated Complaint: ST Time Seen by Provider: 03/06/19 12:51 Hx Obtained From: Patient Hx Last Menstrual Period: ablation ?: No Onset/Duration: Gradual Onset Severity: Mild Cough: None Associated Signs & Symptoms: Positive: Negative - Allergies/Home Medications Allergies/Adverse Reactions: Allergies Allergy/AdvReac Type Severity Reaction Status Date / Time No Known Allergies Allergy Verified 03/06/19 12:51 Home Medications: Home Medications Vit C/Ascorb Sod/Multivit-Min [Emergen-C Vitamin C] 1 chw PO SEE INSTRUCTIONS PRN 03/06/19 [History Confirmed 03/06/19] PMH/Surg Hx/FS Hx/Imm Hx Previously Healthy: Yes - Surgical History Surgical History: Yes Surgery Procedure, Year, and Place: tubal ligation. uterine ablation - Family History Known Family History: Positive: Non-Contributory Negative: Cardiac Disease, Hypertension, Diabetes - Social History Occupation: Employed Full-time Alcohol Use: Occasionally Substance Use Type: None Smoking Status (MU): Never Smoked Tobacco Have You Smoked in the Last Year: No - Immunization History Vaccination Up to Date: No Review of Systems All Other Systems Reviewed And Are Negative: Yes ENT: Positive: Sore Throat Is Patient Immunocompromised?: No Physical Exam Triage Information Reviewed: Yes Appearance: Well-Appearing, No Pain Distress, Well-Nourished Vital Signs Reviewed: Yes Eyes: Positive: Conjunctiva Clear ENT: Positive: Hearing grossly normal, Pharyngeal erythema - Minimal pharyngeal erythema., TMs normal, Uvula midline. Negative: Trismus, Muffled voice, Hoarse voice Neck exam: Normal Neck: Positive: Supple, Nontender, No Lymphadenopathy Respiratory: Positive: Lungs clear, Normal breath sounds, No respiratory distress, No accessory muscle use Cardiovascular: Positive: RRR, No Murmur, Pulses Normal, Brisk Capillary Refill Abdomen Description: Positive: Nontender, No Organomegaly, Soft. Negative: CVA Tenderness (R), CVA Tenderness (L), Hepatomegaly, Splenomegaly Bowel Sounds: Positive: Present Musculoskeletal Exam: Normal Neurological Exam: Normal Psychological Exam: Normal Skin Exam: Normal Throat Pain/Nasal Course/Dx - Course Course Of Treatment: Rapid strep test: Negative - Differential Dx/Diagnosis Provider Diagnosis: Pharyngitis Discharge ED - Sign-Out/Discharge Documenting (check all that apply): Patient Departure All imaging exams completed and their final reports reviewed: No Studies - Discharge Plan Condition: Good Disposition: HOME Patient Education Materials: Pharyngitis (ED) Referrals: Adrianne Martin NP [Primary Care Provider] - Additional Instructions: Increase fluids, warm salt water gargles, throat lozenges. May take Tylenol every 4 hours as needed for pain or fever and alternate with Motrin every 8 hours. Definite follow-up in 3 or 4 days with her primary care provider if no improvement. - Billing Disposition and Condition Condition: GOOD Disposition: Home
[2019-03-06 12:54] VITALS: BP 110/79
== END 2019-03-06 13:23 | disposition home or self-care (01) ==
LOC: UCCORT 11:08
DX: J02.9 Acute pharyngitis, unspecified (principal)
CPT/HCPCS: 87651; 99211; G0463

== ENCOUNTER 2019-04-13 12:30 | Emergency (ER) | payer OTHER ==
[2019-04-13 14:26] VITALS: BP 118/82
--- NOTE | 2019-04-13 14:41 | UC ---
Throat Pain/Nasal Jesus HPI - HPI Summary HPI Summary: Pt presents with c/o ST fever, chills, fatigue X 1 month. - History of Current Complaint Chief Complaint: UCRespiratory Stated Complaint: ST Time Seen by Provider: 04/13/19 14:39 Hx Obtained From: Patient Hx Last Menstrual Period: 2017 ?: No Onset/Duration: Gradual Onset, Lasting Weeks - 4, Still Present, Worse Since - onset Severity: Moderate Pain Intensity: 5 Cough: None Associated Signs & Symptoms: Positive: Dysphagia, Fever - Epiglottits Risk Factors Epiglottis Risk Factors: Negative - Allergies/Home Medications Allergies/Adverse Reactions: Allergies Allergy/AdvReac Type Severity Reaction Status Date / Time No Known Allergies Allergy Verified 04/13/19 14:26 PMH/Surg Hx/FS Hx/Imm Hx Previously Healthy: Yes - Surgical History Surgical History: Yes Surgery Procedure, Year, and Place: tubal ligation. uterine ablation - Family History Known Family History: Positive: Non-Contributory Negative: Cardiac Disease, Hypertension, Diabetes - Social History Occupation: Employed Full-time Lives: With Family Alcohol Use: Occasionally Substance Use Type: None Smoking Status (MU): Never Smoked Tobacco Have You Smoked in the Last Year: No - Immunization History Vaccination Up to Date: No Review of Systems All Other Systems Reviewed And Are Negative: Yes Constitutional: Positive: Fever, Chills, Fatigue Skin: Positive: Negative Eyes: Positive: Negative ENT: Positive: Sore Throat Respiratory: Positive: Negative Cardiovascular: Positive: Negative Gastrointestinal: Positive: Negative Genitourinary: Positive: Negative Motor: Positive: Negative Neurovascular: Positive: Negative Musculoskeletal: Positive: Negative Neurological: Positive: Negative Psychological: Positive: Negative Is Patient Immunocompromised?: No Physical Exam Triage Information Reviewed: Yes Appearance: Ill-Appearing Vital Signs: Initial Vital Signs Temp 100.6 F 04/13/19 14:19 Pulse 104 04/13/19 14:19 Resp 20 04/13/19 14:19 BP 118/82 04/13/19 14:19 Pulse Ox 98 04/13/19 14:19 Vital Signs Reviewed: Yes Eye Exam: Normal ENT: Positive: Pharyngeal erythema, Tonsillar swelling, Tonsillar exudate Dental Exam: Normal Neck: Positive: Tenderness @, Enlarged Nodes @ Respiratory Exam: Normal Cardiovascular: Positive: Tachycardia Musculoskeletal Exam: Normal Neurological Exam: Normal Psychological Exam: Normal Skin Exam: Normal Throat Pain/Nasal Course/Dx - Differential Dx/Diagnosis Differential Diagnosis/HQI/PQRI: Mononucleosis, Pharyngitis, Tonsillitis Provider Diagnosis: Tonsillitis Discharge ED - Sign-Out/Discharge Documenting (check all that apply): Patient Departure All imaging exams completed and their final reports reviewed: No Studies - Discharge Plan Condition: Stable Disposition: HOME Prescriptions: Penicillin VK 500 MG TAB(NF) [Penicillin VK 500 mg Tab] 500 mg PO Q8H #30 tab predniSONE TAB* [Deltasone 10 MG TAB*] 30 mg PO DAILY #12 tab Patient Education Materials: Tonsillitis (ED) Referrals: Adrianne Martin NP [Primary Care Provider] - If Needed - Billing Disposition and Condition Condition: STABLE Disposition: Home
[2019-04-13 19:14] LABS: ABS Lymphocytes 0.9 10^3/ul (1.0-4.8); ABS Monocytes 0.7 10^3/ul (0-0.8); Eosinophil % 0.2 %; Hematocrit 41 % (35-47); Hemoglobin 14.1 g/dL (12.0-16.0); Lymphocyte % 12.2 %; Mean Corpuscular HGB Conc 34 g/dL (31-36); Mean Corpuscular Hemoglobin 31 pg (27-31); Mean Corpuscular Volume 91 fL (80-97); Mean Platelet Volume 9.2 fL (7.4-10.4); Nucleated Red Blood Cells % 0.1; Platelet Count 175 10^3/uL (150-450); Red Blood Count 4.58 10^6 /uL (3.70-4.87); Red Cell Distribution Width 13 % (10-15); White Blood Count 7.7 10^3/uL (3.5-10.8)
== END 2019-04-13 15:03 | disposition home or self-care (01) ==
LOC: UCCORT 12:30
DX: J03.90 Acute tonsillitis, unspecified (principal); R53.83 Other fatigue; R68.83 Chills (without fever)
CPT/HCPCS: 36415; 85025; 86308; 99212; G0463

== ENCOUNTER 2019-04-16 07:22 | Emergency (ER) | payer OTHER ==
[2019-04-16 07:37] VITALS: BP 104/70
--- NOTE | 2019-04-16 08:11 | UC ---
Throat Pain/Nasal Jesus HPI - HPI Summary HPI Summary: Patient is 28 year old female, who present today to the urgent care with sore throat and upper respiratory infection. She reports that she was seen here 3 days ago on with a sore throat and was prescribed penicillin and steroid taper. Her Monospot test was negative. She reports that she is not feeling any better. Pt states she feels everything in her mouth is swollen. Reports is painful swallowing and she is having fevers intermittently, last temperature was yesterday at 101F Denies any chest pain or shortness of breath - History of Current Complaint Chief Complaint: UCGeneralIllness Stated Complaint: ST Time Seen by Provider: 04/16/19 07:38 Hx Obtained From: Patient Hx Last Menstrual Period: 2016 Pain Intensity: 6 - Allergies/Home Medications Allergies/Adverse Reactions: Allergies Allergy/AdvReac Type Severity Reaction Status Date / Time No Known Allergies Allergy Verified 04/16/19 07:38 PMH/Surg Hx/FS Hx/Imm Hx - Additional Past Medical History Additional PMH: Past Medical History : None Past Surgical History: Tubal ligation, uterine ablation Family History : non contributory Social History : Occasional alcohol, non smoker, no drug use. Previously Healthy: Yes - Surgical History Surgical History: Yes Surgery Procedure, Year, and Place: tubal ligation. uterine ablation - Family History Known Family History: Positive: Non-Contributory Negative: Cardiac Disease, Hypertension, Diabetes - Social History Alcohol Use: Occasionally Substance Use Type: None Smoking Status (MU): Never Smoked Tobacco Have You Smoked in the Last Year: No - Immunization History Vaccination Up to Date: No Review of Systems All Other Systems Reviewed And Are Negative: Yes Constitutional: Positive: Fever, Fatigue Skin: Positive: Negative Eyes: Positive: Negative ENT: Positive: Sore Throat, Ear Ache Respiratory: Positive: Cough Cardiovascular: Positive: Negative Gastrointestinal: Positive: Negative Genitourinary: Positive: Negative Motor: Positive: Negative Neurovascular: Positive: Negative Musculoskeletal: Positive: Negative Neurological: Positive: Negative Psychological: Positive: Negative Is Patient Immunocompromised?: No Physical Exam - Summary Physical Exam Summary: Physical Exam: Const: Appears well. No signs of apparent distress present. Alert and oriented x 3. Musculo: Walks with a normal gait. Head/Face: Atraumatic, normocephalic on inspection. Eyes: EOMI and PERRLA in both eyes. Conjunctivae clear. No discharge noted ENT: Hearing normal, TM normal appearing bilaterally, non bulging , non erythematous . No tenderness to palpation on maxillary and frontal sinus. There is pharyngeal erythema with exudates noted on the tonsils bilaterally . Uvula is midline. Anterior cervical / submandibular lymphadenopathy noted. Respiratory: Respirations are unlabored. Lungs clear to auscultation bilaterally, no wheezing , rhonchi or rales noted . CVS: Regular rate and Rhythm, S1S2 normal , no murmurs identified. Extremities: Peripheral circulation is grossly normal. Pulses 2+ Abdomen : Soft non tender , nondistended , Bowel sounds present . No guarding , rebound tenderness or rigidity noted. Skin: No lesions or rash located on the upper extremities or on the lower extremities. Neuro: Cranial nerves II to XII intact, motor and sensory intact. DTR Intact bilaterally. Mood is normal. Affect is normal. Triage Information Reviewed: Yes Vital Signs: Initial Vital Signs Temp 97.5 F 04/16/19 07:33 Pulse 78 04/16/19 07:33 Resp 16 04/16/19 07:33 BP 104/70 04/16/19 07:33 Pulse Ox 100 04/16/19 07:33 Vital Signs Reviewed: Yes Throat Pain/Nasal Course/Dx - Course Course Of Treatment: She is currently being treated with penicillin and steroid taper. It's been the day 3 today. We discussed that we can either test antibodies for mono which could be confirmation but that will not manager exchange . I advised her that it can take 2-3 days before symptoms change after being on antibiotics. Advised supportive care. I will prescribe clindamycin that she can fill in next 2 days if symptoms are not improving. I will also prescribe Tessalon as needed for cough. She'll follow with the primary care doctor in 2-3 days - Differential Dx/Diagnosis Differential Diagnosis/HQI/PQRI: Other - Infectious mononucleosis Provider Diagnosis: Viral upper respiratory infection, Pharyngitis Discharge ED - Sign-Out/Discharge Documenting (check all that apply): Patient Departure All imaging exams completed and their final reports reviewed: No Studies - Discharge Plan Condition: Stable Disposition: HOME Prescriptions: Benzonatate CAP* [Tessalon 100 MG CAP*] 100 mg PO TID PRN 10 Days #30 cap PRN Reason: Cough Clindamycin Cap(NF) [Clindamycin Cap 300 mg Cap(NF)] 300 mg PO TID 10 Days #30 cap Patient Education Materials: Pharyngitis (ED), Viral Syndrome (ED) Referrals: Adrianne Martin NP [Primary Care Provider] - 2 Days Additional Instructions: Please start taking the medication as prescribed to the pharmacy . I have prescribed clindamycin but do not fill it now and wait for couple of days to fill if if no improvement in symptoms. Start taking Tessalon as needed for cough Continue your penicillin and prednisone taper as has been prescribed. Throat lozenges and salt water gargles will be very helpful. Ibuprofen T or ylenol as needed for fevers Follow up with your primary care doctor in 2 days. Patients blood pressure slightly high in Urgent care today , plan follow up with PCP for better control Return to Urgent care / ER if symptoms get worse. - Billing Disposition and Condition Condition: STABLE Disposition: Home
== END 2019-04-16 08:30 | disposition home or self-care (01) ==
LOC: UCCORT 07:22
DX: J06.9 Acute upper respiratory infection, unspecified (principal); J02.9 Acute pharyngitis, unspecified
CPT/HCPCS: 99212; G0463